=== PATIENT | male | born 1950 | race American Indian/Alaskan Native ===

== ENCOUNTER 2021-06-01 01:45 | Inpatient (IN) | payer MEDICARE ==
[2021-06-02] MEDS ORDERED: MELATONIN 5 MG TAB PO PRN (01:27)
[2021-06-02 07:49] LABS: Basophils # (Auto) 0.1 K/mm3 (0.0-0.1); Basophils % (Auto) 1.2 % (0.0-1.8); Eosinophils # (Auto) 0.3 K/mm3 (0.0-0.4); Eosinophils % (Auto) 3.9 % (0.0-4.3); Hematocrit 40.7 % (35.5-45.6); Hemoglobin 13.1 gm/dl (11.8-15.2); Lymphocytes # (Auto) 2.9 K/mm3 (1.2-5.4); Mean Corpuscular HGB Conc 32 % (32-34); Mean Corpuscular Volume 86 fl (84-94); Monocytes # (Auto) 0.7 K/mm3 (0.0-0.8); Monocytes % (Auto) 9.8 % (0.0-7.3); Platelet Count 326 K/mm3 (140-440); Red Blood Count 4.72 M/mm3 (3.65-5.03); Red Cell Distribution Width 16.5 % (13.2-15.2)
[2021-06-02 08:07] LABS: Alanine Aminotransferase 27 units/L (7-56); Albumin 3.9 g/dL (3.9-5); Blood Urea Nitrogen 15 mg/dL (9-20); Calcium 9.7 mg/dL (8.4-10.2); Chol/HDL Ratio 3.71 %; HDL Cholesterol 35 mg/dL (40-59); Hemolysis Index 3; LDL Cholesterol,Direct 85 mg/dL (50-130)
[2021-06-02 08:09] LABS: BUN/Creatinine Ratio 21
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
[2021-06-02] MEDS ORDERED: metFORMIN 500 MG TAB PO SCH (10:00)
[2021-06-02] MEDS ORDERED: NON-FORMULARY EACH (Ferrous Sulfate [Ferrous Sulfate 324 Mg] 324 MG Tablet.Dr) PO SCH (10:00)
[2021-06-02] MEDS ORDERED: INSULIN LISPRO PROTAMIN SQ SCH ×2 (10:00→18:00)
[2021-06-02] MEDS ORDERED: LISPRO SQ SCH ×2 (10:00→18:00)
[2021-06-02] MEDS ORDERED: [UNRECOGNIZED DRUG - OTHER] SQ SCH ×2 (10:00→18:00)
[2021-06-02] MEDS ORDERED: NON-FORMULARY EACH (Rosuvastatin Calcium [Crestor] 20 MG Tablet) PO SCH (10:00)
[2021-06-02] MEDS ORDERED: amLODIPine 10 MG TAB PO SCH (10:00)
[2021-06-02] MEDS ORDERED: NON-FORMULARY EACH (Omeprazole [Omeprazole] 20 MG Capsule.Dr) PO SCH (10:00)
[2021-06-02] MEDS ORDERED: PIOGLITAZONE 15 MG TAB PO SCH (10:00)
[2021-06-02] MEDS: VALPROIC ACID 250 MG/5 ML ORAL LIQD PO SCH (10:12)
[2021-06-02] MEDS: CITALOPRAM 10 MG TAB PO SCH (10:13)
[2021-06-02] MEDS: INSULIN NPH/REGULAR 70/30 INJ SUB-Q SCH (10:14)
[2021-06-02] MEDS: PANTOPRAZOLE 20 MG TAB PO SCH (10:14)
[2021-06-02] MEDS: ASPIRIN 81 MG TAB CHEW PO SCH (10:14)
[2021-06-02] MEDS: LISINOPRIL 5 MG TAB PO SCH (10:17)
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
[2021-06-02] MEDS ORDERED: DEXTROSE 50% IN WATER (25GM) 50 ML SYRINGE IV PRN (11:43)
[2021-06-02] MEDS ORDERED: DEXTROSE 10% *Hypoglycemia IV PRN (11:45)
[2021-06-02] MEDS: INSULIN LISPRO 100 UNIT/ML SUB-Q SCH ×3 (12:09→21:35)
[2021-06-02] MEDS ORDERED: FERROUS SULFATE 325 MG TAB PO SCH (14:00)
[2021-06-02] MEDS ORDERED: INSULIN NPH/REGULAR 70/30 INJ SUB-Q SCH (18:00)
[2021-06-02] MEDS: traZODone 50 MG TAB PO SCH (21:38)
--- NOTE | 2021-06-03 08:55 | Progress Note ---
Assessment and Plan Assessment and plan: #Dementia with behavioral disturbance # Nicotine Abuse. - Cigarettes 2-ppd - behavioral health counseling administered which included education on benefits of smoking cessation as well as options for quitting. +15 min. #Type 2 diabetes with hyperglycemia #GERD #HLD #Essential Hypertension #Advance care planning Disease education conducted, care plan discussed, diagnoses discussed, prognosis discussed, patient is full code, patient acknowledges understanding and agree with care plan, +30 minutes. Plan -Psychiatric medication management per inpatient psych service -Monitor blood pressure daily, vitals signs reviewed for today's encounter. -Accu-Cheks ACHS -Agree with lab work ordered, reviewed all lab values. Counseled on nicotine cessation -A1c: 6.6, ordered SSI for further glycemic control in addition to nph 75/25 regimen at this time. Will consider basal bolus regimen with lantus if glycemic control worsens. Recommend holding metformin and pioglitazone at this time while inpatient, can resume on discharge. - added insulin r 5 units achs, increased nph 75/25 pm dose to 15 units. -lisinopril dose increased from 5 mg po daily to 20 mg po daily. - protonix for GERD noted - Amlodipine and lisinopril for blood pressure control , however Amlodipine 10 mg bid is not appropriate dosing for this medication. will drop to 10 mg daily. Can increase lisinopril dosing if further BP optimization needed. - Atorvastatin for HLD noted. - Ferrous sulfate 325 mg po tid disconitnued, patient is not anemic, normal hemoglobin/hematocrit and MCV. Check QTC in light of initiation of multiple psych medications History Interval history: no overnight events. Blood sugars remain elevated. Hospitalist Physical - Physical exam Narrative exam: Physical Exam: VITAL SIGNS: Reviewed. GENERAL: The patient appears normally developed, Vital signs as documented. HEAD: No signs of head trauma. EYES: Pupils are equal. Extraocular motions intact. EARS: Hearing grossly intact. MOUTH: Oropharynx is normal. NECK: No adenopathy, no JVD. CHEST: Chest with clear breath sounds bilaterally. No wheezes, rales, or rhonchi. CARDIAC: Regular rate and rhythm. S1 and S2, without murmurs, gallops, or rubs. VASCULAR: No Edema. Peripheral pulses normal and equal in all extremities. ABDOMEN: Soft, non tender and non distended. No rebound or guarding, and no masses palpated. Bowel Sounds normal. MUSCULOSKELETAL: Good range of motion of all major joints. Extremities without clubbing, cyanosis or edema. NEUROLOGIC EXAM: Alert and oriented x 4. no focal sensory or strength deficits. PSYCHIATRIC: Mood normal. SKIN: detail exam as documented in skin assessment - Constitutional Vitals: Temp Pulse Resp BP Pulse Ox 98.2 F 70 17 138/69 98 06/02/21 19:32 06/02/21 19:32 06/02/21 19:32 06/02/21 19:32 06/02/21 19:32 Results - Labs CBC & Chem 7: 06/02/21 07:34 06/02/21 07:34 Labs: Laboratory Last Values WBC 7.4 K/mm3 (4.5-11.0) 06/02/21 07:34 RBC 4.72 M/mm3 (3.65-5.03) 06/02/21 07:34 Hgb 13.1 gm/dl (11.8-15.2) 06/02/21 07:34 Hct 40.7 % (35.5-45.6) 06/02/21 07:34 MCV 86 fl (84-94) 06/02/21 07:34 MCH 28 pg (28-32) 06/02/21 07:34 MCHC 32 % (32-34) 06/02/21 07:34 RDW 16.5 % (13.2-15.2) H 06/02/21 07:34 Plt Count 326 K/mm3 (140-440) 06/02/21 07:34 Lymph % (Auto) 40.0 % (13.4-35.0) H 06/02/21 07:34 [place] % (Auto) 9.8 % (0.0-7.3) H 06/02/21 07:34 Eos % (Auto) 3.9 % (0.0-4.3) 06/02/21 07:34 Baso % (Auto) 1.2 % (0.0-1.8) 06/02/21 07:34 Lymph # (Auto) 2.9 K/mm3 (1.2-5.4) 06/02/21 07:34 [place] # (Auto) 0.7 K/mm3 (0.0-0.8) 06/02/21 07:34 Eos # (Auto) 0.3 K/mm3 (0.0-0.4) 06/02/21 07:34 Baso # (Auto) 0.1 K/mm3 (0.0-0.1) 06/02/21 07:34 Seg Neutrophils % 45.1 % (40.0-70.0) 06/02/21 07:34 Seg Neutrophils # 3.3 K/mm3 (1.8-7.7) 06/02/21 07:34 Sodium 136 mmol/L (137-145) L 06/02/21 07:34 Potassium 4.1 mmol/L (3.6-5.0) 06/02/21 07:34 Chloride 100.3 mmol/L (98-107) 06/02/21 07:34 Carbon Dioxide 25 mmol/L (22-30) 06/02/21 07:34 Anion Gap 15 mmol/L 06/02/21 07:34 BUN 15 mg/dL (9-20) 06/02/21 07:34 Creatinine 0.7 mg/dL (0.8-1.3) L 06/02/21 07:34 Estimated GFR > 60 ml/min 06/02/21 07:34 BUN/Creatinine Ratio 21 % 06/02/21 07:34 Glucose 205 mg/dL (75-100) H 06/02/21 07:34 POC Glucose 211 mg/dL (70-105) H 06/03/21 07:04 Hemoglobin A1c 6.6 % (4-6) H 06/02/21 07:34 Calcium 9.7 mg/dL (8.4-10.2) 06/02/21 07:34 Total Bilirubin 0.40 mg/dL (0.1-1.2) 06/02/21 07:34 AST 25 units/L (5-40) 06/02/21 07:34 ALT 27 units/L (7-56) 06/02/21 07:34 Alkaline Phosphatase 70 units/L (35-129) 06/02/21 07:34 Total Protein 7.2 g/dL (6.3-8.2) 06/02/21 07:34 Albumin 3.9 g/dL (3.9-5) 06/02/21 07:34 Albumin/Globulin Ratio 1.2 % 06/02/21 07:34 Triglycerides 60 mg/dL (2-149) 06/02/21 07:34 Cholesterol 130 mg/dL (50-199) 06/02/21 07:34 LDL Cholesterol Direct 85 mg/dL (50-130) 06/02/21 07:34 HDL Cholesterol 35 mg/dL (40-59) L 06/02/21 07:34 Cholesterol/HDL Ratio 3.71 % 06/02/21 07:34 TSH 1.620 mlU/mL (0.270-4.200) 06/02/21 07:34 Mares/IV: Voiding Method Toilet Active Medications - Current Medications Current Medications: Generic Name Dose Route Start Last Admin Trade Name Freq PRN Reason Stop Dose Admin Amlodipine Besylate 10 mg 06/03/21 10:00 Amlodipine 10 Mg Tab PO DAILY [facility] Aspirin 81 mg 06/02/21 10:00 06/02/21 10:14 Aspirin 81 Mg Tab Chew PO 81 mg QDAY [facility] Administration Atorvastatin Calcium 40 mg 06/02/21 22:00 06/02/21 21:38 Atorvastatin 40 Mg Tab PO 40 mg QHS [facility] Administration Citalopram Hydrobromide 10 mg 06/02/21 10:00 06/02/21 10:13 Citalopram 10 Mg Tab PO 10 mg QDAY [facility] Administration Dextrose 0 ml 06/02/21 11:45 Dextrose 10% *Hypoglycemia IV PRN PRN Hypoglycemia Insulin Human Isoph/Insulin Regular 30 unit 06/02/21 10:00 06/02/21 10:14 Insulin Nph/Regular 70/30 Inj SUB-Q 30 unit QAM [facility] Administration Insulin Human Lispro 0 unit 06/02/21 11:30 06/02/21 21:35 Insulin Lispro 100 Unit/Ml SUB-Q 6 unit ACHS [facility] Administration Protocol Lisinopril 5 mg 06/02/21 10:00 06/02/21 10:17 Lisinopril 5 Mg Tab PO Not Given DAILY [facility] Melatonin 5 mg 06/02/21 01:27 Melatonin 5 Mg Tab PO QHS PRN Sleep Pantoprazole Sodium 20 mg 06/02/21 10:00 06/02/21 10:14 Pantoprazole 20 Mg Tab PO 20 mg QDAY [facility] Administration Trazodone HCl 50 mg 06/02/21 22:00 06/02/21 21:38 Trazodone 50 Mg Tab PO 50 mg QHS [facility] Administration Valproic Acid 125 mg 06/02/21 10:00 06/02/21 10:12 Valproic Acid 250 Mg/5 Ml Oral Liqd PO 125 mg DAILY [facility] Administration
[2021-06-03] MEDS: LISINOPRIL 5 MG TAB PO SCH (09:05)
[2021-06-03] MEDS: VALPROIC ACID 250 MG/5 ML ORAL LIQD PO SCH (09:26)
[2021-06-03] MEDS: CITALOPRAM 10 MG TAB PO SCH (09:26)
[2021-06-03] MEDS: PANTOPRAZOLE 20 MG TAB PO SCH (09:27)
[2021-06-03] MEDS: ASPIRIN 81 MG TAB CHEW PO SCH (09:27)
[2021-06-03] MEDS: INSULIN LISPRO 100 UNIT/ML SUB-Q SCH ×4 (09:27→21:09)
--- NOTE | 2021-06-03 10:08 | Progress Note ---
Subjective Date of service: 06/03/21 Principal diagnosis: Dementia with Behavioral Disturbance Subjective Comment: The patient was seen today. He is lying in bed but easily arouses. He is confused. He says he slept okay. The patient says he's doing alright. He denies SI/HI. 06/02 The patient was seen today. He is confused, and had poor insight. He could not give any history or tell what is presently going on with him. He says he was admitted into the hospital because he was sick and had arm pain. He denies any psych history or being on any psych meds. The patient says "I takes a pill for my sugar." He denies ever being agitated at his custodial. The patient denies SI/HI or hallucinations. REVIEW OF SYSTEMS Unable to assess MENTAL STATUS EXAMINATION Unable to assess Assessment and Plan Dementia with Behavioral Disturbance Treatment Plan Patient admitted for inpatient psychiatric evaluation, medication adjustment and close monitoring The patient's behavior, mood, sleep and appetite will be closely monitored. Patient enrolled in individual and group therapeutic sessions and encouraged to attend. Patient provided with a safe and structured environment. Patient's physical health needs will be addressed by the Hospitalist. Hospitalist Consulted Labs including CBC, CMP, Lipid profile and Hemoglobin A1C levels ordered for baseline reference Social Assessment will be completed and the Support Dba will work with patient and family to ensure a suitable and safe disposition Medication adjustment will be made as clinically indicated Valproic 125mg po daily Trazodone 50mg po qhs Usual Wellness Mandaen/Preservation: - Start Trazodone 50 mg po QHS & 50 mg po QHS PRN between 10 PM & 2 AM for insomnia - Start Melatonin 5 mg po QHS to promote circadian rhythm The patient agreed on the treatment plan, understood the risk, benefit, alternative treatment, potential consequence of no treatment, and gave informed consent. Estimated days: Post hospital care: primary care provider, psychiatric provider Case staffed with Dr. Mosley Medications and Allergies Allergies Allergy/AdvReac Type Severity Reaction Status Date / Time No Known Drug Allergies Allergy Unknown Verified 06/02/21 01:14 Home Medications Medication Instructions Recorded Confirmed Last Taken Type Aspirin [Aspirin BABY CHEW TAB] 81 mg PO QDAY 06/02/21 06/02/21 Unknown History Citalopram [celeXA] 10 mg PO QDAY MDD x7 Days 06/02/21 06/02/21 05/30/21 History Ferrous Sulfate [Ferrous Sulfate 324 mg PO DAILY 06/02/21 06/02/21 Unknown History 324 MG] Insulin Lispro Protamin/Lispro 5 units SQ QPM 06/02/21 06/02/21 Unknown History [HumaLOG Mix 75-25 Kwikpen] Insulin Lispro Protamin/Lispro 30 units SQ QAM 06/02/21 06/02/21 Unknown History [HumaLOG Mix 75-25 Kwikpen] Lisinopril [Zestril] 5 mg PO DAILY 06/02/21 06/02/21 Unknown History Metformin HCl [metFORMIN] 1,000 mg PO BID 06/02/21 06/02/21 Unknown History Omeprazole 20 mg PO DAILY 06/02/21 06/02/21 Unknown History Pioglitazone [Actos] 15 mg PO QDAY 06/02/21 06/02/21 Unknown History Rosuvastatin Calcium [Crestor] 20 mg PO DAILY 06/02/21 06/02/21 Unknown History amLODIPine 10 mg PO BID 06/02/21 06/02/21 Unknown History Active Meds: Active Medications Amlodipine Besylate (Amlodipine 10 Mg Tab) 10 mg PO DAILY [facility] Aspirin (Aspirin 81 Mg Tab Chew) 81 mg PO QDAY [facility] Last Admin: 06/03/21 09:27 Dose: 81 mg Atorvastatin Calcium (Atorvastatin 40 Mg Tab) 40 mg PO QHS [facility] Last Admin: 06/02/21 21:38 Dose: 40 mg Citalopram Hydrobromide (Citalopram 10 Mg Tab) 10 mg PO QDAY [facility] Last Admin: 06/03/21 09:26 Dose: 10 mg Dextrose (Dextrose 10% *Hypoglycemia) 0 ml IV PRN PRN PRN Reason: Hypoglycemia Insulin Human Isoph/Insulin Regular (Insulin Nph/Regular 70/30 Inj) [facility] Last Admin: 06/02/21 10:14 Dose: 30 unit Insulin Human Isoph/Insulin Regular (Insulin Nph/Regular 70/30 Inj) 15 unit SUB-Q QPM [facility] Insulin Human Lispro (Insulin Lispro 100 Unit/Ml) 0 unit SUB-Q ACHS [facility]; Protocol Last Admin: 06/02/21 21:35 Dose: 6 unit Insulin Human Regular (Insulin Regular, Human 100 Units/1 Ml) 5 units SUB-Q ACHS [facility] Lisinopril (Lisinopril 20 Mg Tab) 20 mg PO DAILY [facility] Melatonin (Melatonin 5 Mg Tab) 5 mg PO QHS PRN PRN Reason: Sleep Pantoprazole Sodium (Pantoprazole 20 Mg Tab) 20 mg PO QDAY [facility] Last Admin: 06/03/21 09:27 Dose: 20 mg Trazodone HCl (Trazodone 50 Mg Tab) 50 mg PO QHS [facility] Last Admin: 06/02/21 21:38 Dose: 50 mg Valproic Acid (Valproic Acid 250 Mg/5 Ml Oral Liqd) 125 mg PO DAILY [facility] Last Admin: 06/03/21 09:26 Dose: 125 mg Results - Results Labs/Vitals: Laboratory Last Values WBC 7.4 K/mm3 (4.5-11.0) 06/02/21 07:34 RBC 4.72 M/mm3 (3.65-5.03) 06/02/21 07:34 Hgb 13.1 gm/dl (11.8-15.2) 06/02/21 07:34 Hct 40.7 % (35.5-45.6) 06/02/21 07:34 MCV 86 fl (84-94) 06/02/21 07:34 MCH 28 pg (28-32) 06/02/21 07:34 MCHC 32 % (32-34) 06/02/21 07:34 RDW 16.5 % (13.2-15.2) H 06/02/21 07:34 Plt Count 326 K/mm3 (140-440) 06/02/21 07:34 Lymph % (Auto) 40.0 % (13.4-35.0) H 06/02/21 07:34 [place]pp % (Auto) 9.8 % (0.0-7.3) H 06/02/21 07:34 Eos % (Auto) 3.9 % (0.0-4.3) 06/02/21 07:34 Baso % (Auto) 1.2 % (0.0-1.8) 06/02/21 07:34 Lymph # (Auto) 2.9 K/mm3 (1.2-5.4) 06/02/21 07:34 [place]pp # (Auto) 0.7 K/mm3 (0.0-0.8) 06/02/21 07:34 Eos # (Auto) 0.3 K/mm3 (0.0-0.4) 06/02/21 07:34 Baso # (Auto) 0.1 K/mm3 (0.0-0.1) 06/02/21 07:34 Seg Neutrophils % 45.1 % (40.0-70.0) 06/02/21 07:34 Seg Neutrophils # 3.3 K/mm3 (1.8-7.7) 06/02/21 07:34 Sodium 136 mmol/L (137-145) L 06/02/21 07:34 Potassium 4.1 mmol/L (3.6-5.0) 06/02/21 07:34 Chloride 100.3 mmol/L (98-107) 06/02/21 07:34 Carbon Dioxide 25 mmol/L (22-30) 06/02/21 07:34 Anion Gap 15 mmol/L 06/02/21 07:34 BUN 15 mg/dL (9-20) 06/02/21 07:34 Creatinine 0.7 mg/dL (0.8-1.3) L 06/02/21 07:34 Estimated GFR > 60 ml/min 06/02/21 07:34 BUN/Creatinine Ratio 21 % 06/02/21 07:34 Glucose 205 mg/dL (75-100) H 06/02/21 07:34 POC Glucose 211 mg/dL (70-105) H 06/03/21 07:04 Hemoglobin A1c 6.6 % (4-6) H 06/02/21 07:34 Calcium 9.7 mg/dL (8.4-10.2) 06/02/21 07:34 Total Bilirubin 0.40 mg/dL (0.1-1.2) 06/02/21 07:34 AST 25 units/L (5-40) 06/02/21 07:34 ALT 27 units/L (7-56) 06/02/21 07:34 Alkaline Phosphatase 70 units/L (35-129) 06/02/21 07:34 Total Protein 7.2 g/dL (6.3-8.2) 06/02/21 07:34 Albumin 3.9 g/dL (3.9-5) 06/02/21 07:34 Albumin/Globulin Ratio 1.2 % 06/02/21 07:34 Triglycerides 60 mg/dL (2-149) 06/02/21 07:34 Cholesterol 130 mg/dL (50-199) 06/02/21 07:34 LDL Cholesterol Direct 85 mg/dL (50-130) 06/02/21 07:34 HDL Cholesterol 35 mg/dL (40-59) L 06/02/21 07:34 Cholesterol/HDL Ratio 3.71 % 06/02/21 07:34 TSH 1.620 mlU/mL (0.270-4.200) 06/02/21 07:34 Last Vital Signs Temp 98.2 F 06/02/21 19:32 Pulse 57 L 06/03/21 09:05 Resp 17 06/02/21 19:32 BP 134/62 06/03/21 09:05 Pulse Ox 98 06/02/21 19:32
[2021-06-03] MEDS: INSULIN NPH/REGULAR 70/30 INJ SUB-Q SCH ×2 (10:50→18:19)
[2021-06-03] MEDS: amLODIPine 10 MG TAB PO SCH (10:52)
[2021-06-03] MEDS: LISINOPRIL 20 MG TAB PO SCH (10:52)
[2021-06-03] MEDS: INSULIN REGULAR, HUMAN 100 UNITS/1 ML SUB-Q SCH ×3 (11:52→21:08)
[2021-06-03 15:31] LABS: Bilirubin,Urine NEG (Negative); Blood,Urine NEG (Negative); Color,Urine Yellow (Yellow); Mucus,Urine FEW /HPF; Protein,Urine <15 mg/dL mg/dL (Negative); Urobilinogen,Urine < 2.0 mg/dL (<2.0); WBC,Urine < 1.0 /HPF (0.0-6.0)
[2021-06-03] MEDS: traZODone 50 MG TAB PO SCH (21:07)
[2021-06-04] MEDS: INSULIN LISPRO 100 UNIT/ML SUB-Q SCH ×4 (07:15→22:20)
[2021-06-04] MEDS: INSULIN REGULAR, HUMAN 100 UNITS/1 ML SUB-Q SCH ×4 (07:16→22:21)
--- NOTE | 2021-06-04 08:32 | Event Note ---
Date: 06/04/21 AM Accuchecks shows improved glycemic control with diabetic regimen adjustment. VS review demonstrated improved blood pressure control. Patient no additional complaints. IM service will sign off. Thank you for including us in the care of this patient. Please re-consult if further assistance is needed.
[2021-06-04] MEDS: PANTOPRAZOLE 20 MG TAB PO SCH (09:17)
[2021-06-04] MEDS: VALPROIC ACID 250 MG/5 ML ORAL LIQD PO SCH (09:17)
[2021-06-04] MEDS: ASPIRIN 81 MG TAB CHEW PO SCH (09:17)
[2021-06-04] MEDS: CITALOPRAM 10 MG TAB PO SCH (09:18)
[2021-06-04] MEDS: LISINOPRIL 20 MG TAB PO SCH (09:18)
[2021-06-04] MEDS: amLODIPine 10 MG TAB PO SCH (09:18)
[2021-06-04] MEDS: INSULIN NPH/REGULAR 70/30 INJ SUB-Q SCH ×2 (10:33→18:56)
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
[2021-06-04] MEDS: traZODone 50 MG TAB PO SCH (21:28)
[2021-06-05] MEDS: INSULIN LISPRO 100 UNIT/ML SUB-Q SCH ×4 (08:00→22:49)
[2021-06-05] MEDS: INSULIN REGULAR, HUMAN 100 UNITS/1 ML SUB-Q SCH ×5 (08:01→22:51)
[2021-06-05] MEDS: PANTOPRAZOLE 20 MG TAB PO SCH (09:25)
[2021-06-05] MEDS: VALPROIC ACID 250 MG/5 ML ORAL LIQD PO SCH (09:25)
[2021-06-05] MEDS: ASPIRIN 81 MG TAB CHEW PO SCH (09:26)
[2021-06-05] MEDS: amLODIPine 10 MG TAB PO SCH (09:26)
[2021-06-05] MEDS: LISINOPRIL 20 MG TAB PO SCH (09:26)
[2021-06-05] MEDS: CITALOPRAM 10 MG TAB PO SCH (09:26)
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
[2021-06-05] MEDS: INSULIN NPH/REGULAR 70/30 INJ SUB-Q SCH ×2 (10:40→18:36)
--- NOTE | 2021-06-05 11:08 | Progress Note ---
Assessment and Plan - Patient Problems (1) Vascular dementia with behavior disturbance Current Visit: Yes Status: Acute Plan to address problem: Verbal prompting, verbal redirection, benzodiazepine therapy as clinically indicated. (2) Cerebral atherosclerosis Current Visit: Yes Status: Acute Plan to address problem: Risk factor reduction therapy, antiplatelet therapy as clinically indicated. (3) HTN (hypertension) Current Visit: Yes Status: Acute Qualifiers: Hypertension type: primary hypertension Qualified Code(s): I10 - Essential (primary) hypertension Plan to address problem: Monitor blood pressure every shift, continue medical management (4) HLD (hyperlipidemia) Current Visit: Yes Status: Acute Qualifiers: Hyperlipidemia type: mixed hyperlipidemia Qualified Code(s): E78.2 - Mixed hyperlipidemia Plan to address problem: Low-cholesterol diet, supportive care, statin therapy as clinically indicated. (5) Diabetes Current Visit: Yes Status: Acute Plan to address problem: Consistent carbohydrate diet, Accu-Chek, insulin protocol, hypoglycemia protocol. (6) Nicotine dependence Current Visit: Yes Status: Acute Qualifiers: Nicotine product type: cigarettes Plan to address problem: Smoking cessation counseling, supportive care, continue medical management (7) JOHN (generalized anxiety disorder) Current Visit: Yes Status: Acute Plan to address problem: Benzodiazepine therapy as clinically indicated. (8) MDD (major depressive disorder) Current Visit: Yes Status: Acute Qualifiers: Major depression episode severity: unspecified Plan to address problem: Continue medical management, behavior change counseling, cognitive behavioral therapy. (9) Advance care planning Current Visit: Yes Status: Acute Plan to address problem: Disease education conducted, care plan discussed, diagnoses discussed, prognosis discussed, patient is full code. Patient acknowledges understanding and agree with care plan, +30 minutes. History Interval history: 70 YO Male with Vascular Dementia with Behavioral Disturbance, Cerebral Atherosclerosis, Nicotine Dependence, GERD, DM, HLD, HTN, JOHN, MDD admitted to [facility] for psychiatric stabilization. Consult placed by Dr. Bowden for medical management. Pt seen and evaluated in the recreation room. Patient justina ears to be at baseline level of cognition and function. Hospitalist Physical - Constitutional Vitals: Temp Pulse Resp BP Pulse Ox 98.4 F 75 16 121/64 95 06/05/21 08:20 06/05/21 09:26 06/05/21 08:20 06/05/21 09:26 06/05/21 08:20 General appearance: Present: no acute distress - EENT Eyes: Present: PERRL ENT: hearing decreased - Neck Neck: Present: supple - Respiratory Respiratory effort: normal Respiratory: bilateral: CTA - Cardiovascular Rhythm: regular Heart Sounds: Present: S1 & S2 - Extremities Extremities: no ischemia Peripheral Pulses: within normal limits - Abdominal General gastrointestinal: soft, non-tender, non-distended - Integumentary Integumentary: Present: clear, dry - Psychiatric Psychiatric: cooperative - Neurologic Neurologic: CNII-XII intact Results - Labs CBC & Chem 7: 06/02/21 07:34 06/02/21 07:34 Labs: Laboratory Last Values WBC 7.4 K/mm3 (4.5-11.0) 06/02/21 07:34 RBC 4.72 M/mm3 (3.65-5.03) 06/02/21 07:34 Hgb 13.1 gm/dl (11.8-15.2) 06/02/21 07:34 Hct 40.7 % (35.5-45.6) 06/02/21 07:34 MCV 86 fl (84-94) 06/02/21 07:34 MCH 28 pg (28-32) 06/02/21 07:34 MCHC 32 % (32-34) 06/02/21 07:34 RDW 16.5 % (13.2-15.2) H 06/02/21 07:34 Plt Count 326 K/mm3 (140-440) 06/02/21 07:34 Lymph % (Auto) 40.0 % (13.4-35.0) H 06/02/21 07:34 [place] % (Auto) 9.8 % (0.0-7.3) H 06/02/21 07:34 Eos % (Auto) 3.9 % (0.0-4.3) 06/02/21 07:34 Baso % (Auto) 1.2 % (0.0-1.8) 06/02/21 07:34 Lymph # (Auto) 2.9 K/mm3 (1.2-5.4) 06/02/21 07:34 [place] # (Auto) 0.7 K/mm3 (0.0-0.8) 06/02/21 07:34 Eos # (Auto) 0.3 K/mm3 (0.0-0.4) 06/02/21 07:34 Baso # (Auto) 0.1 K/mm3 (0.0-0.1) 06/02/21 07:34 Seg Neutrophils % 45.1 % (40.0-70.0) 06/02/21 07:34 Seg Neutrophils # 3.3 K/mm3 (1.8-7.7) 06/02/21 07:34 Sodium 136 mmol/L (137-145) L 06/02/21 07:34 Potassium 4.1 mmol/L (3.6-5.0) 06/02/21 07:34 Chloride 100.3 mmol/L (98-107) 06/02/21 07:34 Carbon Dioxide 25 mmol/L (22-30) 06/02/21 07:34 Anion Gap 15 mmol/L 06/02/21 07:34 BUN 15 mg/dL (9-20) 06/02/21 07:34 Creatinine 0.7 mg/dL (0.8-1.3) L 06/02/21 07:34 Estimated GFR > 60 ml/min 06/02/21 07:34 BUN/Creatinine Ratio 21 % 06/02/21 07:34 Glucose 205 mg/dL (75-100) H 06/02/21 07:34 POC Glucose 278 mg/dL (70-105) H 06/05/21 10:04 Hemoglobin A1c 6.6 % (4-6) H 06/02/21 07:34 Calcium 9.7 mg/dL (8.4-10.2) 06/02/21 07:34 Total Bilirubin 0.40 mg/dL (0.1-1.2) 06/02/21 07:34 AST 25 units/L (5-40) 06/02/21 07:34 ALT 27 units/L (7-56) 06/02/21 07:34 Alkaline Phosphatase 70 units/L (35-129) 06/02/21 07:34 Total Protein 7.2 g/dL (6.3-8.2) 06/02/21 07:34 Albumin 3.9 g/dL (3.9-5) 06/02/21 07:34 Albumin/Globulin Ratio 1.2 % 06/02/21 07:34 Triglycerides 60 mg/dL (2-149) 06/02/21 07:34 Cholesterol 130 mg/dL (50-199) 06/02/21 07:34 LDL Cholesterol Direct 85 mg/dL (50-130) 06/02/21 07:34 HDL Cholesterol 35 mg/dL (40-59) L 06/02/21 07:34 Cholesterol/HDL Ratio 3.71 % 06/02/21 07:34 TSH 1.620 mlU/mL (0.270-4.200) 06/02/21 07:34 Urine Color Yellow (Yellow) 06/03/21 14:11 Urine Turbidity Clear (Clear) 06/03/21 14:11 Urine pH 5.0 (5.0-7.0) 06/03/21 14:11 Ur Specific [place] 1.015 (1.003-1.030) 06/03/21 14:11 Urine Protein <15 mg/dl mg/dL (Negative) 06/03/21 14:11 Urine Glucose (UA) >=500 mg/dL (Negative) 06/03/21 14:11 Urine Ketones Neg mg/dL (Negative) 06/03/21 14:11 Urine Blood Neg (Negative) 06/03/21 14:11 Urine Nitrite Neg (Negative) 06/03/21 14:11 Urine Bilirubin Neg (Negative) 06/03/21 14:11 Urine Urobilinogen < 2.0 mg/dL (<2.0) 06/03/21 14:11 Ur Leukocyte Esterase Neg (Negative) 06/03/21 14:11 Urine WBC (Auto) < 1.0 /HPF (0.0-6.0) 06/03/21 14:11 Urine RBC (Auto) 1.0 /HPF (0.0-6.0) 06/03/21 14:11 U Epithel Cells (Auto) 1.0 /HPF (0-13.0) 06/03/21 14:11 Urine Mucus Few /HPF 06/03/21 14:11 Mares/IV: Voiding Method Toilet Active Medications - Current Medications Current Medications: Generic Name Dose Route Start Last Admin Trade Name Freq PRN Reason Stop Dose Admin Amlodipine Besylate 10 mg 06/03/21 10:00 06/05/21 09:26 Amlodipine 10 Mg Tab PO 10 mg DAILY [facility] Administration Aspirin 81 mg 06/02/21 10:00 06/05/21 09:26 Aspirin 81 Mg Tab Chew PO 81 mg QDAY [facility] Administration Atorvastatin Calcium 40 mg 06/02/21 22:00 06/04/21 21:28 Atorvastatin 40 Mg Tab PO 40 mg QHS [facility] Administration Citalopram Hydrobromide 10 mg 06/02/21 10:00 06/05/21 09:26 Citalopram 10 Mg Tab PO 10 mg QDAY [facility] Administration Dextrose 0 ml 06/02/21 11:45 Dextrose 10% *Hypoglycemia IV PRN PRN Hypoglycemia Insulin Human Isoph/Insulin Regular 30 unit 06/02/21 10:00 06/04/21 10:33 Insulin Nph/Regular 70/30 Inj SUB-Q 30 unit QAM [facility] Administration Insulin Human Isoph/Insulin Regular 5 unit 06/05/21 18:00 Insulin Nph/Regular 70/30 Inj SUB-Q QPM ON LICENSE OF [facility] Insulin Human Lispro 0 unit 06/02/21 11:30 06/05/21 08:00 Insulin Lispro 100 Unit/Ml SUB-Q 3 unit ACHS [facility] OF [facility] Administration Protocol Insulin Human Regular 5 units 06/03/21 11:30 06/05/21 08:01 Insulin Regular, Human 100 Units/1 Ml SUB-Q Not Given ACHS ON LICENSE OF [facility] Lisinopril 20 mg 06/03/21 08:55 06/05/21 09:26 Lisinopril 20 Mg Tab PO 20 mg DAILY [facility] Administration Melatonin 5 mg 06/02/21 01:27 Melatonin 5 Mg Tab PO QHS PRN Sleep Pantoprazole Sodium 20 mg 06/02/21 10:00 06/05/21 09:25 Pantoprazole 20 Mg Tab PO 20 mg QDAY [facility] Administration Trazodone HCl 50 mg 06/02/21 22:00 06/04/21 21:28 Trazodone 50 Mg Tab PO 50 mg QHS [facility] Administration Valproic Acid 125 mg 06/02/21 10:00 06/05/21 09:25 Valproic Acid 250 Mg/5 Ml Oral Liqd PO 125 mg DAILY [facility] Administration
[2021-06-05] MEDS: traZODone 50 MG TAB PO SCH (21:03)
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
[2021-06-06] MEDS: INSULIN LISPRO 100 UNIT/ML SUB-Q SCH ×4 (09:30→22:22)
[2021-06-06] MEDS: INSULIN REGULAR, HUMAN 100 UNITS/1 ML SUB-Q SCH ×4 (09:31→22:25)
[2021-06-06] MEDS: CITALOPRAM 10 MG TAB PO SCH (10:04)
[2021-06-06] MEDS: VALPROIC ACID 250 MG/5 ML ORAL LIQD PO SCH (10:04)
[2021-06-06] MEDS: ASPIRIN 81 MG TAB CHEW PO SCH (10:05)
[2021-06-06] MEDS: PANTOPRAZOLE 20 MG TAB PO SCH (10:05)
[2021-06-06] MEDS: amLODIPine 10 MG TAB PO SCH (10:09)
[2021-06-06] MEDS: LISINOPRIL 20 MG TAB PO SCH (11:41)
[2021-06-06] MEDS: INSULIN NPH/REGULAR 70/30 INJ SUB-Q SCH ×2 (11:42→22:21)
[2021-06-06] MEDS: traZODone 50 MG TAB PO SCH (22:22)
[2021-06-07] MEDS: INSULIN LISPRO 100 UNIT/ML SUB-Q SCH ×4 (07:30→21:11)
[2021-06-07] MEDS: LISINOPRIL 20 MG TAB PO SCH (09:29)
[2021-06-07] MEDS: INSULIN NPH/REGULAR 70/30 INJ SUB-Q SCH ×2 (09:30→19:26)
[2021-06-07] MEDS: ASPIRIN 81 MG TAB CHEW PO SCH (09:30)
[2021-06-07] MEDS: amLODIPine 10 MG TAB PO SCH (09:31)
[2021-06-07] MEDS: VALPROIC ACID 250 MG/5 ML ORAL LIQD PO SCH (09:31)
[2021-06-07] MEDS: PANTOPRAZOLE 20 MG TAB PO SCH (09:31)
[2021-06-07] MEDS: CITALOPRAM 10 MG TAB PO SCH (09:31)
[2021-06-07] MEDS: INSULIN REGULAR, HUMAN 100 UNITS/1 ML SUB-Q SCH ×4 (09:46→21:10)
--- NOTE | 2021-06-07 13:03 | Progress Note ---
Subjective Date of service: 06/07/21 Principal diagnosis: Dementia with Behavioral Disturbance Subjective Comment: The patient was seen today. He is asking me when was he being discharged. He denies SI/HI ot hallucinations of any kind. The patient will discharge once outpatient resources are in place to help ensure continuity of his mental wellness. 06/06 The patient was seen today. He is calm, and cooperative. He is sitting in the dayroom. He says he feels "pretty good" and slept good. He denies SI/HI or hallucinations of any kind. 06/05 The patient was seen today. He is lying in bed. He is calm and cooperative. He asks for his clothes. I tell the patient he'll get his clothes when he leaves, and tells him he has to stay for a few days to make sure he's calm and his meds are working. He tells me that people lied on him and he never hit anyone. 06/04 The patient was seen today. He says he's doing alright. The patient is calm and cooperative. He says he slept well. He denies SI/HI. I asked him about the incident at his place of residence. He says the lady like on him. He says "I didn't hit her." 06/03 The patient was seen today. He is lying in bed but easily arouses. He is confused. He says he slept okay. The patient says he's doing alright. He denies SI/HI. 06/02 The patient was seen today. He is confused, and had poor insight. He could not give any history or tell what is presently going on with him. He says he was admitted into the hospital because he was sick and had arm pain. He denies any psych history or being on any psych meds. The patient says "I takes a pill for my sugar." He denies ever being agitated at his detention. The patient denies SI/HI or hallucinations. REVIEW OF SYSTEMS Unable to assess MENTAL STATUS EXAMINATION Unable to assess Assessment and Plan Dementia with Behavioral Disturbance Treatment Plan Patient admitted for inpatient psychiatric evaluation, medication adjustment and close monitoring The patient's behavior, mood, sleep and appetite will be closely monitored. Patient enrolled in individual and group therapeutic sessions and encouraged to attend. Patient provided with a safe and structured environment. Patient's physical health needs will be addressed by the Hospitalist. Hospital ist Consulted Labs including CBC, CMP, Lipid profile and Hemoglobin A1C levels ordered for baseline reference Social Assessment will be completed and the Submarine Operator will work with patient and family to ensure a suitable and safe disposition Medication adjustment will be made as clinically indicated Continue Valproic 125mg po daily Continue Trazodone 50mg po qhs Usual Wellness Anabaptist/Preservation: - Start Trazodone 50 mg po QHS & 50 mg po QHS PRN between 10 PM & 2 AM for insomnia - Start Melatonin 5 mg po QHS to promote circadian rhythm The patient agreed on the treatment plan, understood the risk, benefit, alternative treatment, potential consequence of no treatment, and gave informed consent. Estimated days: 5 Post hospital care: primary care provider, psychiatric provider Case staffed with Dr. Mosley Medications and Allergies Allergies Allergy/AdvReac Type Severity Reaction Status Date / Time No Known Drug Allergies Allergy Unknown Verified 06/02/21 01:14 Home Medications Medication Instructions Recorded Confirmed Last Taken Type Aspirin [Aspirin BABY CHEW TAB] 81 mg PO QDAY 06/02/21 06/02/21 Unknown History Citalopram [celeXA] 10 mg PO QDAY MDD x7 Days 06/02/21 06/02/21 05/30/21 History Ferrous Sulfate [Ferrous Sulfate 324 mg PO DAILY 06/02/21 06/02/21 Unknown History 324 MG] Insulin Lispro Protamin/Lispro 5 units SQ QPM 06/02/21 06/02/21 Unknown History [HumaLOG Mix 75-25 Kwikpen] Insulin Lispro Protamin/Lispro 30 units SQ QAM 06/02/21 06/02/21 Unknown History [HumaLOG Mix 75-25 Kwikpen] Lisinopril [Zestril] 5 mg PO DAILY 06/02/21 06/02/21 Unknown History Metformin HCl [metFORMIN] 1,000 mg PO BID 06/02/21 06/02/21 Unknown History Omeprazole 20 mg PO DAILY 06/02/21 06/02/21 Unknown History Pioglitazone [Actos] 15 mg PO QDAY 06/02/21 06/02/21 Unknown History Rosuvastatin Calcium [Crestor] 20 mg PO DAILY 06/02/21 06/02/21 Unknown History amLODIPine 10 mg PO BID 06/02/21 06/02/21 Unknown History Active Meds: Active Medications Amlodipine Besylate (Amlodipine 10 Mg Tab) 10 mg PO DAILY [facility] Last Admin: 06/07/21 09:31 Dose: Not Given Aspirin (Aspirin 81 Mg Tab Chew) 81 mg PO QDAY [facility] Last Admin: 06/07/21 09:30 Dose: 81 mg Atorvastatin Calcium (Atorvastatin 40 Mg Tab) 40 mg PO QHS [facility] Last Admin: 06/06/21 22:22 Dose: 40 mg Citalopram Hydrobromide (Citalopram 10 Mg Tab) 10 mg PO QDAY [facility] Last Admin: 06/07/21 09:31 Dose: 10 mg Dextrose (Dextrose 10% *Hypoglycemia) 0 ml IV PRN PRN PRN Reason: Hypoglycemia Insulin Human Isoph/Insulin Regular (Insulin Nph/Regular 70/30 Inj) [facility] Last Admin: 06/07/21 09:30 Dose: Not Given Insulin Human Isoph/Insulin Regular (Insulin Nph/Regular 70/30 Inj) 5 unit SUB- Q QPM [facility] Last Admin: 06/06/21 22:21 Dose: Not Given Insulin Human Lispro (Insulin Lispro 100 Unit/Ml) 0 unit SUB-Q [facility]; Protocol Last Admin: 06/07/21 12:32 Dose: 3 unit Insulin Human Regular (Insulin Regular, Human 100 Units/1 Ml) 5 units SUB-Q [facility] Last Admin: 06/07/21 12:33 Dose: Not Given Lisinopril (Lisinopril 20 Mg Tab) 20 mg PO DAILY [facility] Last Admin: 06/07/21 09:29 Dose: Not Given Melatonin (Melatonin 5 Mg Tab) 5 mg PO QHS PRN PRN Reason: Sleep Pantoprazole Sodium (Pantoprazole 20 Mg Tab) 20 mg PO QDAY [facility] Last Admin: 06/07/21 09:31 Dose: 20 mg Trazodone HCl (Trazodone 50 Mg Tab) 50 mg PO QHS [facility] Last Admin: 06/06/21 22:22 Dose: 50 mg Valproic Acid (Valproic Acid 250 Mg/5 Ml Oral Liqd) 125 mg PO DAILY [facility] Last Admin: 06/07/21 09:31 Dose: 125 mg Results - Results Labs/Vitals: Laboratory Last Values WBC 7.4 K/mm3 (4.5-11.0) 06/02/21 07:34 RBC 4.72 M/mm3 (3.65-5.03) 06/02/21 07:34 Hgb 13.1 gm/dl (11.8-15.2) 06/02/21 07:34 Hct 40.7 % (35.5-45.6) 06/02/21 07:34 MCV 86 fl (84-94) 06/02/21 07:34 MCH 28 pg (28-32) 06/02/21 07:34 MCHC 32 % (32-34) 06/02/21 07:34 RDW 16.5 % (13.2-15.2) H 06/02/21 07:34 Plt Count 326 K/mm3 (140-440) 06/02/21 07:34 Lymph % (Auto) 40.0 % (13.4-35.0) H 06/02/21 07:34 [place] % (Auto) 9.8 % (0.0-7.3) H 06/02/21 07:34 Eos % (Auto) 3.9 % (0.0-4.3) 06/02/21 07:34 Baso % (Auto) 1.2 % (0.0-1.8) 06/02/21 07:34 Lymph # (Auto) 2.9 K/mm3 (1.2-5.4) 06/02/21 07:34 [place] # (Auto) 0.7 K/mm3 (0.0-0.8) 06/02/21 07:34 Eos # (Auto) 0.3 K/mm3 (0.0-0.4) 06/02/21 07:34 Baso # (Auto) 0.1 K/mm3 (0.0-0.1) 06/02/21 07:34 Seg Neutrophils % 45.1 % (40.0-70.0) 06/02/21 07:34 Seg Neutrophils # 3.3 K/mm3 (1.8-7.7) 06/02/21 07:34 Sodium 136 mmol/L (137-145) L 06/02/21 07:34 Potassium 4.1 mmol/L (3.6-5.0) 06/02/21 07:34 Chloride 100.3 mmol/L (98-107) 06/02/21 07:34 Carbon Dioxide 25 mmol/L (22-30) 06/02/21 07:34 Anion Gap 15 mmol/L 06/02/21 07:34 BUN 15 mg/dL (9-20) 06/02/21 07:34 Creatinine 0.7 mg/dL (0.8-1.3) L 06/02/21 07:34 Estimated GFR > 60 ml/min 06/02/21 07:34 BUN/Creatinine Ratio 21 % 06/02/21 07:34 Glucose 205 mg/dL (75-100) H 06/02/21 07:34 POC Glucose 225 mg/dL (70-105) H 06/07/21 11:40 Hemoglobin A1c 6.6 % (4-6) H 06/02/21 07:34 Calcium 9.7 mg/dL (8.4-10.2) 06/02/21 07:34 Total Bilirubin 0.40 mg/dL (0.1-1.2) 06/02/21 07:34 AST 25 units/L (5-40) 06/02/21 07:34 ALT 27 units/L (7-56) 06/02/21 07:34 Alkaline Phosphatase 70 units/L (35-129) 06/02/21 07:34 Total Protein 7.2 g/dL (6.3-8.2) 06/02/21 07:34 Albumin 3.9 g/dL (3.9-5) 06/02/21 07:34 Albumin/Globulin Ratio 1.2 % 06/02/21 07:34 Triglycerides 60 mg/dL (2-149) 06/02/21 07:34 Cholesterol 130 mg/dL (50-199) 06/02/21 07:34 LDL Cholesterol Direct 85 mg/dL (50-130) 06/02/21 07:34 HDL Cholesterol 35 mg/dL (40-59) L 06/02/21 07:34 Cholesterol/HDL Ratio 3.71 % 06/02/21 07:34 TSH 1.620 mlU/mL (0.270-4.200) 06/02/21 07:34 Urine Color Yellow (Yellow) 06/03/21 14:11 Urine Turbidity Clear (Clear) 06/03/21 14:11 Urine pH 5.0 (5.0-7.0) 06/03/21 14:11 Ur Specific [place] 1.015 (1.003-1.030) 06/03/21 14:11 Urine Protein <15 mg/dl mg/dL (Negative) 06/03/21 14:11 Urine Glucose (UA) >=500 mg/dL (Negative) 06/03/21 14:11 Urine Ketones Neg mg/dL (Negative) 06/03/21 14:11 Urine Blood Neg (Negative) 06/03/21 14:11 Urine Nitrite Neg (Negative) 06/03/21 14:11 Urine Bilirubin Neg (Negative) 06/03/21 14:11 Urine Urobilinogen < 2.0 mg/dL (<2.0) 06/03/21 14:11 Ur Leukocyte Esterase Neg (Negative) 06/03/21 14:11 Urine WBC (Auto) < 1.0 /HPF (0.0-6.0) 06/03/21 14:11 Urine RBC (Auto) 1.0 /HPF (0.0-6.0) 06/03/21 14:11 U Epithel Cells (Auto) 1.0 /HPF (0-13.0) 06/03/21 14:11 Urine Mucus Few /HPF 06/03/21 14:11 Last Vital Signs Temp 98.8 F 06/07/21 08:08 Pulse 81 06/07/21 09:31 Resp 16 06/07/21 08:08 BP 100/61 06/07/21 09:31 Pulse Ox 96 06/07/21 08:08
[2021-06-07] MEDS: traZODone 50 MG TAB PO SCH (21:10)
[2021-06-08] MEDS: INSULIN LISPRO 100 UNIT/ML SUB-Q SCH ×4 (07:30→22:15)
[2021-06-08] MEDS: INSULIN REGULAR, HUMAN 100 UNITS/1 ML SUB-Q SCH ×4 (07:30→22:16)
[2021-06-08] MEDS: amLODIPine 10 MG TAB PO SCH (09:11)
[2021-06-08] MEDS: CITALOPRAM 10 MG TAB PO SCH (09:11)
[2021-06-08] MEDS: ASPIRIN 81 MG TAB CHEW PO SCH (09:11)
[2021-06-08] MEDS: VALPROIC ACID 250 MG/5 ML ORAL LIQD PO SCH (09:11)
[2021-06-08] MEDS: PANTOPRAZOLE 20 MG TAB PO SCH (09:11)
[2021-06-08] MEDS: LISINOPRIL 20 MG TAB PO SCH (09:12)
[2021-06-08] MEDS: INSULIN NPH/REGULAR 70/30 INJ SUB-Q SCH ×2 (09:13→17:07)
--- NOTE | 2021-06-08 09:54 | Progress Note ---
Subjective Date of service: 06/08/21 Principal diagnosis: Dementia with Behavioral Disturbance Subjective Comment: 06/08/21: The patient was seen this morning. He is cooperative and states he is doing well. He is asking me when was he being discharged. He denies SI/HI ot hallucinations of any kind. Awaiting placement. 06/07/21:The patient was seen today. He is asking me when was he being discharged. He denies SI/HI ot hallucinations of any kind. The patient will di scharge once outpatient resources are in place to help ensure continuity of his mental wellness. 06/06 The patient was seen today. He is calm, and cooperative. He is sitting in the dayroom. He says he feels "pretty good" and slept good. He denies SI/HI or hallucinations of any kind. 06/05 The patient was seen today. He is lying in bed. He is calm and cooperative. He asks for his clothes. I tell the patient he'll get his clothes when he leaves, and tells him he has to stay for a few days to make sure he's calm and his meds are working. He tells me that people lied on him and he never hit anyone. 06/04 The patient was seen today. He says he's doing alright. The patient is calm and cooperative. He says he slept well. He denies SI/HI. I asked him about the incident at his place of residence. He says the lady like on him. He says "I didn't hit her." 06/03 The patient was seen today. He is lying in bed but easily arouses. He is confused. He says he slept okay. The patient says he's doing alright. He denies SI/HI. 06/02 The patient was seen today. He is confused, and had poor insight. He could not give any history or tell what is presently going on with him. He says he was admitted into the hospital because he was sick and had arm pain. He denies any psych history or being on any psych meds. The patient says "I takes a pill for my sugar." He denies ever being agitated at his half-way. The patient denies SI/HI or hallucinations. REVIEW OF SYSTEMS Unable to assess MENTAL STATUS EXAMINATION Unable to assess Assessment and Plan Dementia with Behavioral Disturbance Treatment Plan Patient admitted for inpatient psychiatric evaluation, medication adjustment and close monitoring The patient's behavior, mood, sleep and appetite will be closely monitored. Patient enrolled in individual and group therapeutic sessions and encouraged to attend. Patient provided with a safe and structured environment. Patient's physical health needs will be addressed by the Hospitalist. Hospitalist Consulted Labs including CBC, CMP, Lipid profile and Hemoglobin A1C levels ordered for baseline reference Social Assessment will be completed and the [employer] Reporter will work with patient and family to ensure a suitable and safe disposition Medication adjustment will be made as clinically indicated Continue Valproic 125mg po daily Continue Trazodone 50mg po qhs Usual Wellness Rastafari/Preservation: - Start Trazodone 50 mg po QHS & 50 mg po QHS PRN between 10 PM & 2 AM for insomnia - Start Melatonin 5 mg po QHS to promote circadian rhythm The patient agreed on the treatment plan, understood the risk, benefit, alternative treatment, potential consequence of no treatment, and gave informed consent. Estimated days: 5 Post hospital care: primary care provider, psychiatric provider Case staffed with Dr. Mosley Medications and Allergies Medications and Allergies Allergies Allergy/AdvReac Type Severity Reaction Status Date / Time No Known Drug Allergies Allergy Unknown Verified 06/02/21 01:14 Home Medications Medication Instructions Recorded Confirmed Last Taken Type Aspirin [Aspirin BABY CHEW TAB] 81 mg PO QDAY 06/02/21 06/02/21 Unknown History Citalopram [celeXA] 10 mg PO QDAY MDD x7 Days 06/02/21 06/02/21 05/30/21 History Ferrous Sulfate [Ferrous Sulfate 324 mg PO DAILY 06/02/21 06/02/21 Unknown History 324 MG] Insulin Lispro Protamin/Lispro 5 units SQ QPM 06/02/21 06/02/21 Unknown History [HumaLOG Mix 75-25 Kwikpen] Insulin Lispro Protamin/Lispro 30 units SQ QAM 06/02/21 06/02/21 Unknown History [HumaLOG Mix 75-25 Kwikpen] Lisinopril [Zestril] 5 mg PO DAILY 06/02/21 06/02/21 Unknown History Metformin HCl [metFORMIN] 1,000 mg PO BID 06/02/21 06/02/21 Unknown History Omeprazole 20 mg PO DAILY 06/02/21 06/02/21 Unknown History Pioglitazone [Actos] 15 mg PO QDAY 06/02/21 06/02/21 Unknown History Rosuvastatin Calcium [Crestor] 20 mg PO DAILY 06/02/21 06/02/21 Unknown History amLODIPine 10 mg PO BID 06/02/21 06/02/21 Unknown History Active Meds: Active Medications Amlodipine Besylate (Amlodipine 10 Mg Tab) 10 mg PO DAILY [facility] Last Admin: 06/08/21 09:11 Dose: Not Given Aspirin (Aspirin 81 Mg Tab Chew) 81 mg PO QDAY [facility] Last Admin: 06/08/21 09:11 Dose: 81 mg Atorvastatin Calcium (Atorvastatin 40 Mg Tab) 40 mg PO QHS [facility] Last Admin: 06/07/21 21:11 Dose: 40 mg Citalopram Hydrobromide (Citalopram 10 Mg Tab) 10 mg PO QDAY [facility] Last Admin: 06/08/21 09:11 Dose: 10 mg Dextrose (Dextrose 10% *Hypoglycemia) 0 ml IV PRN PRN PRN Reason: Hypoglycemia Insulin Human Isoph/Insulin Regular (Insulin Nph/Regular 70/30 Inj) 30 unit [facility] Admin: 06/08/21 09:13 Dose: 30 unit Insulin Human Isoph/Insulin Regular (Insulin Nph/Regular 70/30 Inj) 5 unit SUB- Q QPM [facility] Last Admin: 06/07/21 19:26 Dose: Not Given Insulin Human Lispro (Insulin Lispro 100 Unit/Ml) 0 unit SUB-Q [facility]; Protocol Last Admin: 06/08/21 07:30 Dose: 3 unit Insulin Human Regular (Insulin Regular, Human 100 Units/1 Ml) 5 units SUB-Q [facility] Last Admin: 06/08/21 07:30 Dose: 5 units Lisinopril (Lisinopril 20 Mg Tab) 20 mg PO DAILY [facility] Last Admin: 06/08/21 09:12 Dose: Not Given Melatonin (Melatonin 5 Mg Tab) 5 mg PO QHS PRN PRN Reason: Sleep Pantoprazole Sodium (Pantoprazole 20 Mg Tab) 20 mg PO QDAY [facility] Last Admin: 06/08/21 09:11 Dose: 20 mg Trazodone HCl (Trazodone 50 Mg Tab) 50 mg PO QHS [facility] Last Admin: 06/07/21 21:10 Dose: 50 mg Valproic Acid (Valproic Acid 250 Mg/5 Ml Oral Liqd) 125 mg PO DAILY [facility] Last Admin: 06/08/21 09:11 Dose: 125 mg Results - Results Labs/Vitals: Laboratory Last Values WBC 7.4 K/mm3 (4.5-11.0) 06/02/21 07:34 RBC 4.72 M/mm3 (3.65-5.03) 06/02/21 07:34 Hgb 13.1 gm/dl (11.8-15.2) 06/02/21 07:34 Hct 40.7 % (35.5-45.6) 06/02/21 07:34 MCV 86 fl (84-94) 06/02/21 07:34 MCH 28 pg (28-32) 06/02/21 07:34 MCHC 32 % (32-34) 06/02/21 07:34 RDW 16.5 % (13.2-15.2) H 06/02/21 07:34 Plt Count 326 K/mm3 (140-440) 06/02/21 07:34 Lymph % (Auto) 40.0 % (13.4-35.0) H 06/02/21 07:34 [place] % (Auto) 9.8 % (0.0-7.3) H 06/02/21 07:34 Eos % (Auto) 3.9 % (0.0-4.3) 06/02/21 07:34 Baso % (Auto) 1.2 % (0.0-1.8) 06/02/21 07:34 Lymph # (Auto) 2.9 K/mm3 (1.2-5.4) 06/02/21 07:34 [place] # (Auto) 0.7 K/mm3 (0.0-0.8) 06/02/21 07:34 Eos # (Auto) 0.3 K/mm3 (0.0-0.4) 06/02/21 07:34 Baso # (Auto) 0.1 K/mm3 (0.0-0.1) 06/02/21 07:34 Seg Neutrophils % 45.1 % (40.0-70.0) 06/02/21 07:34 Seg Neutrophils # 3.3 K/mm3 (1.8-7.7) 06/02/21 07:34 Sodium 136 mmol/L (137-145) L 06/02/21 07:34 Potassium 4.1 mmol/L (3.6-5.0) 06/02/21 07:34 Chloride 100.3 mmol/L (98-107) 06/02/21 07:34 Carbon Dioxide 25 mmol/L (22-30) 06/02/21 07:34 Anion Gap 15 mmol/L 06/02/21 07:34 BUN 15 mg/dL (9-20) 06/02/21 07:34 Creatinine 0.7 mg/dL (0.8-1.3) L 06/02/21 07:34 Estimated GFR > 60 ml/min 06/02/21 07:34 BUN/Creatinine Ratio 21 % 06/02/21 07:34 Glucose 205 mg/dL (75-100) H 06/02/21 07:34 POC Glucose 221 mg/dL (70-105) H 06/08/21 06:11 Hemoglobin A1c 6.6 % (4-6) H 06/02/21 07:34 Calcium 9.7 mg/dL (8.4-10.2) 06/02/21 07:34 Total Bilirubin 0.40 mg/dL (0.1-1.2) 06/02/21 07:34 AST 25 units/L (5-40) 06/02/21 07:34 ALT 27 units/L (7-56) 06/02/21 07:34 Alkaline Phosphatase 70 units/L (35-129) 06/02/21 07:34 Total Protein 7.2 g/dL (6.3-8.2) 06/02/21 07:34 Albumin 3.9 g/dL (3.9-5) 06/02/21 07:34 Albumin/Globulin Ratio 1.2 % 06/02/21 07:34 Triglycerides 60 mg/dL (2-149) 06/02/21 07:34 Cholesterol 130 mg/dL (50-199) 06/02/21 07:34 LDL Cholesterol Direct 85 mg/dL (50-130) 06/02/21 07:34 HDL Cholesterol 35 mg/dL (40-59) L 06/02/21 07:34 Cholesterol/HDL Ratio 3.71 % 06/02/21 07:34 TSH 1.620 mlU/mL (0.270-4.200) 06/02/21 07:34 Urine Color Yellow (Yellow) 06/03/21 14:11 Urine Turbidity Clear (Clear) 06/03/21 14:11 Urine pH 5.0 (5.0-7.0) 06/03/21 14:11 Ur Specific [place] 1.015 (1.003-1.030) 06/03/21 14:11 Urine Protein <15 mg/dl mg/dL (Negative) 06/03/21 14:11 Urine Glucose (UA) >=500 mg/dL (Negative) 06/03/21 14:11 Urine Ketones Neg mg/dL (Negative) 06/03/21 14:11 Urine Blood Neg (Negative) 06/03/21 14:11 Urine Nitrite Neg (Negative) 06/03/21 14:11 Urine Bilirubin Neg (Negative) 06/03/21 14:11 Urine Urobilinogen < 2.0 mg/dL (<2.0) 06/03/21 14:11 Ur Leukocyte Esterase Neg (Negative) 06/03/21 14:11 Urine WBC (Auto) < 1.0 /HPF (0.0-6.0) 06/03/21 14:11 Urine RBC (Auto) 1.0 /HPF (0.0-6.0) 06/03/21 14:11 U Epithel Cells (Auto) 1.0 /HPF (0-13.0) 06/03/21 14:11 Urine Mucus Few /HPF 06/03/21 14:11 Last Vital Signs Temp 98.6 F 06/07/21 19:20 Pulse 62 06/07/21 19:20 Resp 16 06/07/21 19:20 BP 163/71 06/07/21 19:20 Pulse Ox 97 06/07/21 19:20
--- NOTE | 2021-06-08 20:52 | Progress Note ---
Assessment and Plan - Patient Problems (1) Vascular dementia with behavior disturbance Current Visit: Yes Status: Acute Plan to address problem: Verbal prompting, verbal redirection, benzodiazepine therapy as clinically indicated. (2) Cerebral atherosclerosis Current Visit: Yes Status: Acute Plan to address problem: Risk factor reduction therapy, antiplatelet therapy as clinically indicated. (3) HTN (hypertension) Current Visit: Yes Status: Acute Qualifiers: Hypertension type: primary hypertension Qualified Code(s): I10 - Essential (primary) hypertension Plan to address problem: Monitor blood pressure every shift, continue medical management (4) HLD (hyperlipidemia) Current Visit: Yes Status: Acute Qualifiers: Hyperlipidemia type: mixed hyperlipidemia Qualified Code(s): E78.2 - Mixed hyperlipidemia Plan to address problem: Low-cholesterol diet, supportive care, statin therapy as clinically indicated. (5) Diabetes Current Visit: Yes Status: Acute Plan to address problem: Consistent carbohydrate diet, Accu-Chek, insulin protocol, hypoglycemia protocol. (6) Nicotine dependence Current Visit: Yes Status: Acute Qualifiers: Nicotine product type: cigarettes Plan to address problem: Smoking cessation counseling, supportive care, continue medical management (7) JOHN (generalized anxiety disorder) Current Visit: Yes Status: Acute Plan to address problem: Benzodiazepine therapy as clinically indicated. (8) MDD (major depressive disorder) Current Visit: Yes Status: Acute Qualifiers: Major depression episode severity: unspecified Plan to address problem: Continue medical management, behavior change counseling, cognitive behavioral therapy. (9) Advance care planning Current Visit: Yes Status: Acute Plan to address problem: Disease education conducted, care plan discussed, diagnoses discussed, prognosis discussed, patient is full code. Patient acknowledges understanding and agree with care plan, +30 minutes. History Interval history: 70 YO Male with Vascular Dementia with Behavioral Disturbance, Cerebral Atherosclerosis, Nicotine Dependence, GERD, DM, HLD, HTN, JOHN, MDD admitted to [facility] for psychiatric stabilization. Consult placed by Dr. Bowden for medical management. Pt seen and evaluated in the recreation room. Patient justina ears to be at baseline level of cognition and function. Hospitalist Physical - Constitutional Vitals: Temp Pulse Resp BP Pulse Ox 98.9 F 76 17 123/71 91 06/08/21 19:17 06/08/21 19:17 06/08/21 19:17 06/08/21 19:17 06/08/21 19:17 General appearance: Present: no acute distress - EENT Eyes: Present: PERRL ENT: hearing decreased - Neck Neck: Present: supple - Respiratory Respiratory effort: normal Respiratory: bilateral: CTA - Cardiovascular Rhythm: regular Heart Sounds: Present: S1 & S2 - Extremities Extremities: no ischemia Peripheral Pulses: within normal limits - Abdominal General gastrointestinal: soft, non-tender, non-distended - Integumentary Integumentary: Present: clear, dry - Psychiatric Psychiatric: cooperative - Neurologic Neurologic: CNII-XII intact Results - Labs CBC & Chem 7: 06/02/21 07:34 06/02/21 07:34 Labs: Laboratory Last Values WBC 7.4 K/mm3 (4.5-11.0) 06/02/21 07:34 RBC 4.72 M/mm3 (3.65-5.03) 06/02/21 07:34 Hgb 13.1 gm/dl (11.8-15.2) 06/02/21 07:34 Hct 40.7 % (35.5-45.6) 06/02/21 07:34 MCV 86 fl (84-94) 06/02/21 07:34 MCH 28 pg (28-32) 06/02/21 07:34 MCHC 32 % (32-34) 06/02/21 07:34 RDW 16.5 % (13.2-15.2) H 06/02/21 07:34 Plt Count 326 K/mm3 (140-440) 06/02/21 07:34 Lymph % (Auto) 40.0 % (13.4-35.0) H 06/02/21 07:34 [place] % (Auto) 9.8 % (0.0-7.3) H 06/02/21 07:34 Eos % (Auto) 3.9 % (0.0-4.3) 06/02/21 07:34 Baso % (Auto) 1.2 % (0.0-1.8) 06/02/21 07:34 Lymph # (Auto) 2.9 K/mm3 (1.2-5.4) 06/02/21 07:34 [place] # (Auto) 0.7 K/mm3 (0.0-0.8) 06/02/21 07:34 Eos # (Auto) 0.3 K/mm3 (0.0-0.4) 06/02/21 07:34 Baso # (Auto) 0.1 K/mm3 (0.0-0.1) 06/02/21 07:34 Seg Neutrophils % 45.1 % (40.0-70.0) 06/02/21 07:34 Seg Neutrophils # 3.3 K/mm3 (1.8-7.7) 06/02/21 07:34 Sodium 136 mmol/L (137-145) L 06/02/21 07:34 Potassium 4.1 mmol/L (3.6-5.0) 06/02/21 07:34 Chloride 100.3 mmol/L (98-107) 06/02/21 07:34 Carbon Dioxide 25 mmol/L (22-30) 06/02/21 07:34 Anion Gap 15 mmol/L 06/02/21 07:34 BUN 15 mg/dL (9-20) 06/02/21 07:34 Creatinine 0.7 mg/dL (0.8-1.3) L 06/02/21 07:34 Estimated GFR > 60 ml/min 06/02/21 07:34 BUN/Creatinine Ratio 21 % 06/02/21 07:34 Glucose 205 mg/dL (75-100) H 06/02/21 07:34 POC Glucose 109 mg/dL (70-105) H 06/08/21 15:52 Hemoglobin A1c 6.6 % (4-6) H 06/02/21 07:34 Calcium 9.7 mg/dL (8.4-10.2) 06/02/21 07:34 Total Bilirubin 0.40 mg/dL (0.1-1.2) 06/02/21 07:34 AST 25 units/L (5-40) 06/02/21 07:34 ALT 27 units/L (7-56) 06/02/21 07:34 Alkaline Phosphatase 70 units/L (35-129) 06/02/21 07:34 Total Protein 7.2 g/dL (6.3-8.2) 06/02/21 07:34 Albumin 3.9 g/dL (3.9-5) 06/02/21 07:34 Albumin/Globulin Ratio 1.2 % 06/02/21 07:34 Triglycerides 60 mg/dL (2-149) 06/02/21 07:34 Cholesterol 130 mg/dL (50-199) 06/02/21 07:34 LDL Cholesterol Direct 85 mg/dL (50-130) 06/02/21 07:34 HDL Cholesterol 35 mg/dL (40-59) L 06/02/21 07:34 Cholesterol/HDL Ratio 3.71 % 06/02/21 07:34 TSH 1.620 mlU/mL (0.270-4.200) 06/02/21 07:34 Urine Color Yellow (Yellow) 06/03/21 14:11 Urine Turbidity Clear (Clear) 06/03/21 14:11 Urine pH 5.0 (5.0-7.0) 06/03/21 14:11 Ur Specific [place] 1.015 (1.003-1.030) 06/03/21 14:11 Urine Protein <15 mg/dl mg/dL (Negative) 06/03/21 14:11 Urine Glucose (UA) >=500 mg/dL (Negative) 06/03/21 14:11 Urine Ketones Neg mg/dL (Negative) 06/03/21 14:11 Urine Blood Neg (Negative) 06/03/21 14:11 Urine Nitrite Neg (Negative) 06/03/21 14:11 Urine Bilirubin Neg (Negative) 06/03/21 14:11 Urine Urobilinogen < 2.0 mg/dL (<2.0) 06/03/21 14:11 Ur Leukocyte Esterase Neg (Negative) 06/03/21 14:11 Urine WBC (Auto) < 1.0 /HPF (0.0-6.0) 06/03/21 14:11 Urine RBC (Auto) 1.0 /HPF (0.0-6.0) 06/03/21 14:11 U Epithel Cells (Auto) 1.0 /HPF (0-13.0) 06/03/21 14:11 Urine Mucus Few /HPF 06/03/21 14:11 Mares/IV: Voiding Method Toilet Active Medications - Current Medications Current Medications: Generic Name Dose Route Start Last Admin Trade Name Freq PRN Reason Stop Dose Admin Amlodipine Besylate 10 mg 06/03/21 10:00 06/08/21 09:11 Amlodipine 10 Mg Tab PO Not Given DAILY [facility] Aspirin 81 mg 06/02/21 10:00 06/08/21 09:11 Aspirin 81 Mg Tab Chew PO 81 mg QDAY COUNT INCLUDES THE [facility] Administration Atorvastatin Calcium 40 mg 06/02/21 22:00 06/07/21 21:11 Atorvastatin 40 Mg Tab PO 40 mg QHS [facility] Administration Citalopram Hydrobromide 10 mg 06/02/21 10:00 06/08/21 09:11 Citalopram 10 Mg Tab PO 10 mg QDAY [facility] Administration Dextrose 0 ml 06/02/21 11:45 Dextrose 10% *Hypoglycemia IV PRN PRN Hypoglycemia Insulin Human Isoph/Insulin Regular 30 unit 06/02/21 10:00 06/08/21 09:13 Insulin Nph/Regular 70/30 Inj SUB-Q 30 unit QAM COUNT [facility]CLUD[facility] Administration Insulin Human Isoph/Insulin Regular 5 unit 06/05/21 18:00 06/08/21 17:07 Insulin Nph/Regular 70/30 Inj SUB-Q 5 unit QPM COUNT INCLUDES [facility] Administration Insulin Human Lispro 0 unit 06/02/21 11:30 06/08/21 16:35 Insulin Lispro 100 Unit/Ml SUB-Q Not Given [facility] Protocol Insulin Human Regular 5 units 06/03/21 11:30 06/08/21 16:36 Insulin Regular, Human 100 Units/1 Ml SUB-Q Not Given [facility] Lisinopril 20 mg 06/03/21 08:55 06/08/21 09:12 Lisinopril 20 Mg Tab PO Not Given DAILY COUNT INCLUDES [facility] Melatonin 5 mg 06/02/21 01:27 Melatonin 5 Mg Tab PO QHS PRN Sleep Pantoprazole Sodium 20 mg 06/02/21 10:00 06/08/21 09:11 Pantoprazole 20 Mg Tab PO 20 mg QDAY COUNT INCLUDES [facility] Administration Trazodone HCl 50 mg 06/02/21 22:00 06/07/21 21:10 Trazodone 50 Mg Tab PO 50 mg QHS COUNT INCLUDES [facility] Administration Valproic Acid 125 mg 06/02/21 10:00 06/08/21 09:11 Valproic Acid 250 Mg/5 Ml Oral Liqd PO 125 mg DAILY [facility] Administration Nutrition/Malnutrition Assess - Dietary Evaluation Nutrition/Malnutrition Findings: Nutrition Notes Start: 06/08/21 10:22 Freq: Status: Active Protocol: Document 06/08/21 10:22 KEYANA (Rec: 06/08/21 10:24 [facility] [id number]) Nutrition Notes Need for Assessment generated from: LOS Initial or Follow up Brief Note Current Diet Cardiac/Consistent CHO Height 5 ft 10 in Weight 81.2 kg [place] Body Weight (kg) 75.45 BMI 25.7 Weight Status Overweight Subjective/Other Information Pt screened for LOS. He has consumed 100% of meals since admission. Percent of energy/protein needs met: 96% energy 100% pro Burn Absent Trauma Absent Current % PO Good (75-100%) Minimum of two criteria No Is patient on ventilator? No Is Patient Ambulatory and/or Out of Bed Yes REE-([place]. Jeor-ambulatory/OOB) [ 2050.72 [id number]] Calculation Used for Recommendations [place] or Additional Notes Pro needs 1-1.2g/k-97g/ day Fluid needs 1ml/kcal Nutrition Intervention Revisit per MD consult or patient Sign Off request:
--- NOTE | 2021-06-08 20:52 | Progress Note ---
Assessment and Plan - Patient Problems (1) Vascular dementia with behavior disturbance Current Visit: Yes Status: Acute Plan to address problem: Verbal prompting, verbal redirection, benzodiazepine therapy as clinically indicated. (2) Cerebral atherosclerosis Current Visit: Yes Status: Acute Plan to address problem: Risk factor reduction therapy, antiplatelet therapy as clinically indicated. (3) HTN (hypertension) Current Visit: Yes Status: Acute Qualifiers: Hypertension type: primary hypertension Qualified Code(s): I10 - Essential (primary) hypertension Plan to address problem: Monitor blood pressure every shift, continue medical management (4) HLD (hyperlipidemia) Current Visit: Yes Status: Acute Qualifiers: Hyperlipidemia type: mixed hyperlipidemia Qualified Code(s): E78.2 - Mixed hyperlipidemia Plan to address problem: Low-cholesterol diet, supportive care, statin therapy as clinically indicated. (5) Diabetes Current Visit: Yes Status: Acute Plan to address problem: Consistent carbohydrate diet, Accu-Chek, insulin protocol, hypoglycemia protocol. (6) Nicotine dependence Current Visit: Yes Status: Acute Qualifiers: Nicotine product type: cigarettes Plan to address problem: Smoking cessation counseling, supportive care, continue medical management (7) JOHN (generalized anxiety disorder) Current Visit: Yes Status: Acute Plan to address problem: Benzodiazepine therapy as clinically indicated. (8) MDD (major depressive disorder) Current Visit: Yes Status: Acute Qualifiers: Major depression episode severity: unspecified Plan to address problem: Continue medical management, behavior change counseling, cognitive behavioral therapy. (9) Advance care planning Current Visit: Yes Status: Acute Plan to address problem: Disease education conducted, care plan discussed, diagnoses discussed, prognosis discussed, patient is full code. Patient acknowledges understanding and agree with care plan, +30 minutes. History Interval history: 70 YO Male with Vascular Dementia with Behavioral Disturbance, Cerebral Atherosclerosis, Nicotine Dependence, GERD, DM, HLD, HTN, JOHN, MDD admitted to [facility] for psychiatric stabilization. Consult placed by Dr. Bowden for medical management. Pt seen and evaluated in the recreation room. Patient justina ears to be at baseline level of cognition and function. Hospitalist Physical - Constitutional Vitals: Temp Pulse Resp BP Pulse Ox 98.9 F 76 17 123/71 91 06/08/21 19:17 06/08/21 19:17 06/08/21 19:17 06/08/21 19:17 06/08/21 19:17 General appearance: Present: no acute distress - EENT Eyes: Present: PERRL ENT: hearing decreased - Neck Neck: Present: supple - Respiratory Respiratory effort: normal Respiratory: bilateral: diminished - Cardiovascular Rhythm: regular Heart Sounds: Present: S1 & S2 - Extremities Extremities: no ischemia Peripheral Pulses: within normal limits - Abdominal General gastrointestinal: soft, non-tender, non-distended - Integumentary Integumentary: Present: clear, dry - Psychiatric Psychiatric: cooperative - Neurologic Neurologic: CNII-XII intact Results - Labs CBC & Chem 7: 06/02/21 07:34 06/02/21 07:34 Labs: Laboratory Last Values WBC 7.4 K/mm3 (4.5-11.0) 06/02/21 07:34 RBC 4.72 M/mm3 (3.65-5.03) 06/02/21 07:34 Hgb 13.1 gm/dl (11.8-15.2) 06/02/21 07:34 Hct 40.7 % (35.5-45.6) 06/02/21 07:34 MCV 86 fl (84-94) 06/02/21 07:34 MCH 28 pg (28-32) 06/02/21 07:34 MCHC 32 % (32-34) 06/02/21 07:34 RDW 16.5 % (13.2-15.2) H 06/02/21 07:34 Plt Count 326 K/mm3 (140-440) 06/02/21 07:34 Lymph % (Auto) 40.0 % (13.4-35.0) H 06/02/21 07:34 [place] % (Auto) 9.8 % (0.0-7.3) H 06/02/21 07:34 Eos % (Auto) 3.9 % (0.0-4.3) 06/02/21 07:34 Baso % (Auto) 1.2 % (0.0-1.8) 06/02/21 07:34 Lymph # (Auto) 2.9 K/mm3 (1.2-5.4) 06/02/21 07:34 [place] # (Auto) 0.7 K/mm3 (0.0-0.8) 06/02/21 07:34 Eos # (Auto) 0.3 K/mm3 (0.0-0.4) 06/02/21 07:34 Baso # (Auto) 0.1 K/mm3 (0.0-0.1) 06/02/21 07:34 Seg Neutrophils % 45.1 % (40.0-70.0) 06/02/21 07:34 Seg Neutrophils # 3.3 K/mm3 (1.8-7.7) 06/02/21 07:34 Sodium 136 mmol/L (137-145) L 06/02/21 07:34 Potassium 4.1 mmol/L (3.6-5.0) 06/02/21 07:34 Chloride 100.3 mmol/L (98-107) 06/02/21 07:34 Carbon Dioxide 25 mmol/L (22-30) 06/02/21 07:34 Anion Gap 15 mmol/L 06/02/21 07:34 BUN 15 mg/dL (9-20) 06/02/21 07:34 Creatinine 0.7 mg/dL (0.8-1.3) L 06/02/21 07:34 Estimated GFR > 60 ml/min 06/02/21 07:34 BUN/Creatinine Ratio 21 % 06/02/21 07:34 Glucose 205 mg/dL (75-100) H 06/02/21 07:34 POC Glucose 109 mg/dL (70-105) H 06/08/21 15:52 Hemoglobin A1c 6.6 % (4-6) H 06/02/21 07:34 Calcium 9.7 mg/dL (8.4-10.2) 06/02/21 07:34 Total Bilirubin 0.40 mg/dL (0.1-1.2) 06/02/21 07:34 AST 25 units/L (5-40) 06/02/21 07:34 ALT 27 units/L (7-56) 06/02/21 07:34 Alkaline Phosphatase 70 units/L (35-129) 06/02/21 07:34 Total Protein 7.2 g/dL (6.3-8.2) 06/02/21 07:34 Albumin 3.9 g/dL (3.9-5) 06/02/21 07:34 Albumin/Globulin Ratio 1.2 % 06/02/21 07:34 Triglycerides 60 mg/dL (2-149) 06/02/21 07:34 Cholesterol 130 mg/dL (50-199) 06/02/21 07:34 LDL Cholesterol Direct 85 mg/dL (50-130) 06/02/21 07:34 HDL Cholesterol 35 mg/dL (40-59) L 06/02/21 07:34 Cholesterol/HDL Ratio 3.71 % 06/02/21 07:34 TSH 1.620 mlU/mL (0.270-4.200) 06/02/21 07:34 Urine Color Yellow (Yellow) 06/03/21 14:11 Urine Turbidity Clear (Clear) 06/03/21 14:11 Urine pH 5.0 (5.0-7.0) 06/03/21 14:11 Ur Specific [place] 1.015 (1.003-1.030) 06/03/21 14:11 Urine Protein <15 mg/dl mg/dL (Negative) 06/03/21 14:11 Urine Glucose (UA) >=500 mg/dL (Negative) 06/03/21 14:11 Urine Ketones Neg mg/dL (Negative) 06/03/21 14:11 Urine Blood Neg (Negative) 06/03/21 14:11 Urine Nitrite Neg (Negative) 06/03/21 14:11 Urine Bilirubin Neg (Negative) 06/03/21 14:11 Urine Urobilinogen < 2.0 mg/dL (<2.0) 06/03/21 14:11 Ur Leukocyte Esterase Neg (Negative) 06/03/21 14:11 Urine WBC (Auto) < 1.0 /HPF (0.0-6.0) 06/03/21 14:11 Urine RBC (Auto) 1.0 /HPF (0.0-6.0) 06/03/21 14:11 U Epithel Cells (Auto) 1.0 /HPF (0-13.0) 06/03/21 14:11 Urine Mucus Few /HPF 06/03/21 14:11 Mares/IV: Voiding Method Toilet Active Medications - Current Medications Current Medications: Generic Name Dose Route Start Last Admin Trade Name Freq PRN Reason Stop Dose Admin Amlodipine Besylate 10 mg 06/03/21 10:00 06/08/21 09:11 Amlodipine 10 Mg Tab PO Not Given DAILY [facility] Aspirin 81 mg 06/02/21 10:00 06/08/21 09:11 Aspirin 81 Mg Tab Chew PO 81 mg QDAY [facility] Administration Atorvastatin Calcium 40 mg 06/02/21 22:00 06/07/21 21:11 Atorvastatin 40 Mg Tab PO 40 mg QHS [facility] Administration Citalopram Hydrobromide 10 mg 06/02/21 10:00 06/08/21 09:11 Citalopram 10 Mg Tab PO 10 mg QDAY [facility] Administration Dextrose 0 ml 06/02/21 11:45 Dextrose 10% *Hypoglycemia IV PRN PRN Hypoglycemia Insulin Human Isoph/Insulin Regular 30 unit 06/02/21 10:00 06/08/21 09:13 Insulin Nph/Regular 70/30 Inj SUB-Q 30 unit QAM [facility] Administration Insulin Human Isoph/Insulin Regular 5 unit 06/05/21 18:00 06/08/21 17:07 Insulin Nph/Regular 70/30 Inj SUB-Q 5 unit QPM [facility] Administration Insulin Human Lispro 0 unit 06/02/21 11:30 06/08/21 16:35 Insulin Lispro 100 Unit/Ml SUB-Q Not Given [facility] Protocol Insulin Human Regular 5 units 06/03/21 11:30 06/08/21 16:36 Insulin Regular, Human 100 Units/1 Ml SUB-Q Not Given [facility] Lisinopril 20 mg 06/03/21 08:55 06/08/21 09:12 Lisinopril 20 Mg Tab PO Not Given DAILY [facility] Melatonin 5 mg 06/02/21 01:27 Melatonin 5 Mg Tab PO QHS PRN Sleep Pantoprazole Sodium 20 mg 06/02/21 10:00 06/08/21 09:11 Pantoprazole 20 Mg Tab PO 20 mg QDAY [facility] Administration Trazodone HCl 50 mg 06/02/21 22:00 06/07/21 21:10 Trazodone 50 Mg Tab PO 50 mg QHS [facility] Administration Valproic Acid 125 mg 06/02/21 10:00 06/08/21 09:11 Valproic Acid 250 Mg/5 Ml Oral Liqd PO 125 mg DAILY [facility] Administration Nutrition/Malnutrition Assess - Dietary Evaluation Nutrition/Malnutrition Findings: Nutrition Notes Start: 06/08/21 10:22 Freq: Status: Active Protocol: Document 06/08/21 10:22 KEYANA (Rec: 06/08/21 10:24 [facility] [id number]) Nutrition Notes Need for Assessment generated from: LOS Initial or Follow up Brief Note Current Diet Cardiac/Consistent CHO Height 5 ft 10 in Weight 81.2 kg [place] Body Weight (kg) 75.45 BMI 25.7 Weight Status Overweight Subjective/Other Information Pt screened for LOS. He has consumed 100% of meals since admission. Percent of energy/protein needs met: 96% energy 100% pro Burn Absent Trauma Absent Current % PO Good (75-100%) Minimum of two criteria No Is patient on ventilator? No Is Patient Ambulatory and/or Out of Bed Yes REE-([place]. Jeor-ambulatory/OOB) [ 2050.72 NUTR.MSJOOB] Calculation Used for Recommendations [place] or Additional Notes Pro needs 1-1.2g/k-97g/ day Fluid needs 1ml/kcal Nutrition Intervention Revisit per MD consult or patient Sign Off request:
--- NOTE | 2021-06-08 20:53 | Progress Note ---
Assessment and Plan - Patient Problems (1) Vascular dementia with behavior disturbance Current Visit: Yes Status: Acute Plan to address problem: Verbal prompting, verbal redirection, benzodiazepine therapy as clinically indicated. (2) Cerebral atherosclerosis Current Visit: Yes Status: Acute Plan to address problem: Risk factor reduction therapy, antiplatelet therapy as clinically indicated. (3) HTN (hypertension) Current Visit: Yes Status: Acute Qualifiers: Hypertension type: primary hypertension Qualified Code(s): I10 - Essential (primary) hypertension Plan to address problem: Monitor blood pressure every shift, continue medical management (4) HLD (hyperlipidemia) Current Visit: Yes Status: Acute Qualifiers: Hyperlipidemia type: mixed hyperlipidemia Qualified Code(s): E78.2 - Mixed hyperlipidemia Plan to address problem: Low-cholesterol diet, supportive care, statin therapy as clinically indicated. (5) Diabetes Current Visit: Yes Status: Acute Plan to address problem: Consistent carbohydrate diet, Accu-Chek, insulin protocol, hypoglycemia protocol. (6) Nicotine dependence Current Visit: Yes Status: Acute Qualifiers: Nicotine product type: cigarettes Plan to address problem: Smoking cessation counseling, supportive care, continue medical management (7) JOHN (generalized anxiety disorder) Current Visit: Yes Status: Acute Plan to address problem: Benzodiazepine therapy as clinically indicated. (8) MDD (major depressive disorder) Current Visit: Yes Status: Acute Qualifiers: Major depression episode severity: unspecified Plan to address problem: Continue medical management, behavior change counseling, cognitive behavioral therapy. (9) Advance care planning Current Visit: Yes Status: Acute Plan to address problem: Disease education conducted, care plan discussed, diagnoses discussed, prognosis discussed, patient is full code. Patient acknowledges understanding and agree with care plan, +30 minutes. History Interval history: 70 YO Male with Vascular Dementia with Behavioral Disturbance, Cerebral Atherosclerosis, Nicotine Dependence, GERD, DM, HLD, HTN, JOHN, MDD admitted to [facility] for psychiatric stabilization. Consult placed by Dr. Bowden for medical management. Pt seen and evaluated in the recreation room. Patient justina ears to be at baseline level of cognition and function. Hospitalist Physical - Constitutional Vitals: Temp Pulse Resp BP Pulse Ox 98.9 F 76 17 123/71 91 06/08/21 19:17 06/08/21 19:17 06/08/21 19:17 06/08/21 19:17 06/08/21 19:17 General appearance: Present: no acute distress - EENT Eyes: Present: PERRL ENT: hearing decreased - Neck Neck: Present: supple - Respiratory Respiratory effort: normal Respiratory: bilateral: CTA - Cardiovascular Rhythm: regular Heart Sounds: Present: S1 & S2 - Extremities Extremities: no ischemia Peripheral Pulses: within normal limits - Abdominal General gastrointestinal: soft, non-tender, non-distended - Integumentary Integumentary: Present: clear, dry - Psychiatric Psychiatric: cooperative - Neurologic Neurologic: CNII-XII intact Results - Labs CBC & Chem 7: 06/02/21 07:34 06/02/21 07:34 Labs: Laboratory Last Values WBC 7.4 K/mm3 (4.5-11.0) 06/02/21 07:34 RBC 4.72 M/mm3 (3.65-5.03) 06/02/21 07:34 Hgb 13.1 gm/dl (11.8-15.2) 06/02/21 07:34 Hct 40.7 % (35.5-45.6) 06/02/21 07:34 MCV 86 fl (84-94) 06/02/21 07:34 MCH 28 pg (28-32) 06/02/21 07:34 MCHC 32 % (32-34) 06/02/21 07:34 RDW 16.5 % (13.2-15.2) H 06/02/21 07:34 Plt Count 326 K/mm3 (140-440) 06/02/21 07:34 Lymph % (Auto) 40.0 % (13.4-35.0) H 06/02/21 07:34 [place] % (Auto) 9.8 % (0.0-7.3) H 06/02/21 07:34 Eos % (Auto) 3.9 % (0.0-4.3) 06/02/21 07:34 Baso % (Auto) 1.2 % (0.0-1.8) 06/02/21 07:34 Lymph # (Auto) 2.9 K/mm3 (1.2-5.4) 06/02/21 07:34 [place] # (Auto) 0.7 K/mm3 (0.0-0.8) 06/02/21 07:34 Eos # (Auto) 0.3 K/mm3 (0.0-0.4) 06/02/21 07:34 Baso # (Auto) 0.1 K/mm3 (0.0-0.1) 06/02/21 07:34 Seg Neutrophils % 45.1 % (40.0-70.0) 06/02/21 07:34 Seg Neutrophils # 3.3 K/mm3 (1.8-7.7) 06/02/21 07:34 Sodium 136 mmol/L (137-145) L 06/02/21 07:34 Potassium 4.1 mmol/L (3.6-5.0) 06/02/21 07:34 Chloride 100.3 mmol/L (98-107) 06/02/21 07:34 Carbon Dioxide 25 mmol/L (22-30) 06/02/21 07:34 Anion Gap 15 mmol/L 06/02/21 07:34 BUN 15 mg/dL (9-20) 06/02/21 07:34 Creatinine 0.7 mg/dL (0.8-1.3) L 06/02/21 07:34 Estimated GFR > 60 ml/min 06/02/21 07:34 BUN/Creatinine Ratio 21 % 06/02/21 07:34 Glucose 205 mg/dL (75-100) H 06/02/21 07:34 POC Glucose 109 mg/dL (70-105) H 06/08/21 15:52 Hemoglobin A1c 6.6 % (4-6) H 06/02/21 07:34 Calcium 9.7 mg/dL (8.4-10.2) 06/02/21 07:34 Total Bilirubin 0.40 mg/dL (0.1-1.2) 06/02/21 07:34 AST 25 units/L (5-40) 06/02/21 07:34 ALT 27 units/L (7-56) 06/02/21 07:34 Alkaline Phosphatase 70 units/L (35-129) 06/02/21 07:34 Total Protein 7.2 g/dL (6.3-8.2) 06/02/21 07:34 Albumin 3.9 g/dL (3.9-5) 06/02/21 07:34 Albumin/Globulin Ratio 1.2 % 06/02/21 07:34 Triglycerides 60 mg/dL (2-149) 06/02/21 07:34 Cholesterol 130 mg/dL (50-199) 06/02/21 07:34 LDL Cholesterol Direct 85 mg/dL (50-130) 06/02/21 07:34 HDL Cholesterol 35 mg/dL (40-59) L 06/02/21 07:34 Cholesterol/HDL Ratio 3.71 % 06/02/21 07:34 TSH 1.620 mlU/mL (0.270-4.200) 06/02/21 07:34 Urine Color Yellow (Yellow) 06/03/21 14:11 Urine Turbidity Clear (Clear) 06/03/21 14:11 Urine pH 5.0 (5.0-7.0) 06/03/21 14:11 Ur Specific [place] 1.015 (1.003-1.030) 06/03/21 14:11 Urine Protein <15 mg/dl mg/dL (Negative) 06/03/21 14:11 Urine Glucose (UA) >=500 mg/dL (Negative) 06/03/21 14:11 Urine Ketones Neg mg/dL (Negative) 06/03/21 14:11 Urine Blood Neg (Negative) 06/03/21 14:11 Urine Nitrite Neg (Negative) 06/03/21 14:11 Urine Bilirubin Neg (Negative) 06/03/21 14:11 Urine Urobilinogen < 2.0 mg/dL (<2.0) 06/03/21 14:11 Ur Leukocyte Esterase Neg (Negative) 06/03/21 14:11 Urine WBC (Auto) < 1.0 /HPF (0.0-6.0) 06/03/21 14:11 Urine RBC (Auto) 1.0 /HPF (0.0-6.0) 06/03/21 14:11 U Epithel Cells (Auto) 1.0 /HPF (0-13.0) 06/03/21 14:11 Urine Mucus Few /HPF 06/03/21 14:11 Mares/IV: Voiding Method Toilet Active Medications - Current Medications Current Medications: Generic Name Dose Route Start Last Admin Trade Name Freq PRN Reason Stop Dose Admin Amlodipine Besylate 10 mg 06/03/21 10:00 06/08/21 09:11 Amlodipine 10 Mg Tab PO Not Given DAILY [facility] Aspirin 81 mg 06/02/21 10:00 06/08/21 09:11 Aspirin 81 Mg Tab Chew PO 81 mg QDAY [facility] Administration Atorvastatin Calcium 40 mg 06/02/21 22:00 06/07/21 21:11 Atorvastatin 40 Mg Tab PO 40 mg QHS [facility] Administration Citalopram Hydrobromide 10 mg 06/02/21 10:00 06/08/21 09:11 Citalopram 10 Mg Tab PO 10 mg QDAY [facility] Administration Dextrose 0 ml 06/02/21 11:45 Dextrose 10% *Hypoglycemia IV PRN PRN Hypoglycemia Insulin Human Isoph/Insulin Regular 30 unit 06/02/21 10:00 06/08/21 09:13 Insulin Nph/Regular 70/30 Inj SUB-Q 30 unit QAM [facility] Administration Insulin Human Isoph/Insulin Regular 5 unit 06/05/21 18:00 06/08/21 17:07 Insulin Nph/Regular 70/30 Inj SUB-Q 5 unit QPM [facility] Administration Insulin Human Lispro 0 unit 06/02/21 11:30 06/08/21 16:35 Insulin Lispro 100 Unit/Ml SUB-Q Not Given [facility] Protocol Insulin Human Regular 5 units 06/03/21 11:30 06/08/21 16:36 Insulin Regular, Human 100 Units/1 Ml SUB-Q Not Given [facility] Lisinopril 20 mg 06/03/21 08:55 06/08/21 09:12 Lisinopril 20 Mg Tab PO Not Given DAILY [facility] Melatonin 5 mg 06/02/21 01:27 Melatonin 5 Mg Tab PO QHS PRN Sleep Pantoprazole Sodium 20 mg 06/02/21 10:00 06/08/21 09:11 Pantoprazole 20 Mg Tab PO 20 mg QDAY [facility] Administration Trazodone HCl 50 mg 06/02/21 22:00 06/07/21 21:10 Trazodone 50 Mg Tab PO 50 mg QHS [facility] Administration Valproic Acid 125 mg 06/02/21 10:00 06/08/21 09:11 Valproic Acid 250 Mg/5 Ml Oral Liqd PO 125 mg DAILY [facility] Administration Nutrition/Malnutrition Assess - Dietary Evaluation Nutrition/Malnutrition Findings: Nutrition Notes Start: 06/08/21 10:22 Freq: Status: Active Protocol: Document 06/08/21 10:22 KEYANA (Rec: 06/08/21 10:24 [email or web address] [id number]) Nutrition Notes Need for Assessment generated from: LOS Initial or Follow up Brief Note Current Diet Cardiac/Consistent CHO Height 5 ft 10 in Weight 81.2 kg [place] Body Weight (kg) 75.45 BMI 25.7 Weight Status Overweight Subjective/Other Information Pt screened for LOS. He has consumed 100% of meals since admission. Percent of energy/protein needs met: 96% energy 100% pro Burn Absent Trauma Absent Current % PO Good (75-100%) Minimum of two criteria No Is patient on ventilator? No Is Patient Ambulatory and/or Out of Bed Yes REE-([place]. Jeor-ambulatory/OOB) [ 2050.72 NUTR.MSJOOB] Calculation Used for Recommendations [place] or Additional Notes Pro needs 1-1.2g/k-97g/ day Fluid needs 1ml/kcal Nutrition Intervention Revisit per MD consult or patient Sign Off request:
--- NOTE | 2021-06-08 20:54 | Progress Note ---
Assessment and Plan - Patient Problems (1) Vascular dementia with behavior disturbance Current Visit: Yes Status: Acute Plan to address problem: Verbal prompting, verbal redirection, benzodiazepine therapy as clinically indicated. (2) Cerebral atherosclerosis Current Visit: Yes Status: Acute Plan to address problem: Risk factor reduction therapy, antiplatelet therapy as clinically indicated. (3) HTN (hypertension) Current Visit: Yes Status: Acute Qualifiers: Hypertension type: primary hypertension Qualified Code(s): I10 - Essential (primary) hypertension Plan to address problem: Monitor blood pressure every shift, continue medical management (4) HLD (hyperlipidemia) Current Visit: Yes Status: Acute Qualifiers: Hyperlipidemia type: mixed hyperlipidemia Qualified Code(s): E78.2 - Mixed hyperlipidemia Plan to address problem: Low-cholesterol diet, supportive care, statin therapy as clinically indicated. (5) Diabetes Current Visit: Yes Status: Acute Plan to address problem: Consistent carbohydrate diet, Accu-Chek, insulin protocol, hypoglycemia protocol. (6) Nicotine dependence Current Visit: Yes Status: Acute Qualifiers: Nicotine product type: cigarettes Plan to address problem: Smoking cessation counseling, supportive care, continue medical management (7) JOHN (generalized anxiety disorder) Current Visit: Yes Status: Acute Plan to address problem: Benzodiazepine therapy as clinically indicated. (8) MDD (major depressive disorder) Current Visit: Yes Status: Acute Qualifiers: Major depression episode severity: unspecified Plan to address problem: Continue medical management, behavior change counseling, cognitive behavioral therapy. (9) Advance care planning Current Visit: Yes Status: Acute Plan to address problem: Disease education conducted, care plan discussed, diagnoses discussed, prognosis discussed, patient is full code. Patient acknowledges understanding and agree with care plan, +30 minutes. History Interval history: 70 YO Male with Vascular Dementia with Behavioral Disturbance, Cerebral Atherosclerosis, Nicotine Dependence, GERD, DM, HLD, HTN, JOHN, MDD admitted to [facility] for psychiatric stabilization. Consult placed by Dr. Bowden for medical management. Pt seen and evaluated in the recreation room. Patient justina ears to be at baseline level of cognition and function. Hospitalist Physical - Constitutional Vitals: Temp Pulse Resp BP Pulse Ox 98.9 F 76 17 123/71 91 06/08/21 19:17 06/08/21 19:17 06/08/21 19:17 06/08/21 19:17 06/08/21 19:17 General appearance: Present: no acute distress - EENT Eyes: Present: PERRL ENT: hearing decreased - Neck Neck: Present: supple - Respiratory Respiratory effort: normal Respiratory: bilateral: CTA - Cardiovascular Rhythm: regular Heart Sounds: Present: S1 & S2 - Extremities Extremities: no ischemia Peripheral Pulses: within normal limits - Abdominal General gastrointestinal: soft, non-tender, non-distended - Integumentary Integumentary: Present: clear, dry - Psychiatric Psychiatric: cooperative - Neurologic Neurologic: CNII-XII intact Results - Labs CBC & Chem 7: 06/02/21 07:34 06/02/21 07:34 Labs: Laboratory Last Values WBC 7.4 K/mm3 (4.5-11.0) 06/02/21 07:34 RBC 4.72 M/mm3 (3.65-5.03) 06/02/21 07:34 Hgb 13.1 gm/dl (11.8-15.2) 06/02/21 07:34 Hct 40.7 % (35.5-45.6) 06/02/21 07:34 MCV 86 fl (84-94) 06/02/21 07:34 MCH 28 pg (28-32) 06/02/21 07:34 MCHC 32 % (32-34) 06/02/21 07:34 RDW 16.5 % (13.2-15.2) H 06/02/21 07:34 Plt Count 326 K/mm3 (140-440) 06/02/21 07:34 Lymph % (Auto) 40.0 % (13.4-35.0) H 06/02/21 07:34 [place] % (Auto) 9.8 % (0.0-7.3) H 06/02/21 07:34 Eos % (Auto) 3.9 % (0.0-4.3) 06/02/21 07:34 Baso % (Auto) 1.2 % (0.0-1.8) 06/02/21 07:34 Lymph # (Auto) 2.9 K/mm3 (1.2-5.4) 06/02/21 07:34 [place] # (Auto) 0.7 K/mm3 (0.0-0.8) 06/02/21 07:34 Eos # (Auto) 0.3 K/mm3 (0.0-0.4) 06/02/21 07:34 Baso # (Auto) 0.1 K/mm3 (0.0-0.1) 06/02/21 07:34 Seg Neutrophils % 45.1 % (40.0-70.0) 06/02/21 07:34 Seg Neutrophils # 3.3 K/mm3 (1.8-7.7) 06/02/21 07:34 Sodium 136 mmol/L (137-145) L 06/02/21 07:34 Potassium 4.1 mmol/L (3.6-5.0) 06/02/21 07:34 Chloride 100.3 mmol/L (98-107) 06/02/21 07:34 Carbon Dioxide 25 mmol/L (22-30) 06/02/21 07:34 Anion Gap 15 mmol/L 06/02/21 07:34 BUN 15 mg/dL (9-20) 06/02/21 07:34 Creatinine 0.7 mg/dL (0.8-1.3) L 06/02/21 07:34 Estimated GFR > 60 ml/min 06/02/21 07:34 BUN/Creatinine Ratio 21 % 06/02/21 07:34 Glucose 205 mg/dL (75-100) H 06/02/21 07:34 POC Glucose 109 mg/dL (70-105) H 06/08/21 15:52 Hemoglobin A1c 6.6 % (4-6) H 06/02/21 07:34 Calcium 9.7 mg/dL (8.4-10.2) 06/02/21 07:34 Total Bilirubin 0.40 mg/dL (0.1-1.2) 06/02/21 07:34 AST 25 units/L (5-40) 06/02/21 07:34 ALT 27 units/L (7-56) 06/02/21 07:34 Alkaline Phosphatase 70 units/L (35-129) 06/02/21 07:34 Total Protein 7.2 g/dL (6.3-8.2) 06/02/21 07:34 Albumin 3.9 g/dL (3.9-5) 06/02/21 07:34 Albumin/Globulin Ratio 1.2 % 06/02/21 07:34 Triglycerides 60 mg/dL (2-149) 06/02/21 07:34 Cholesterol 130 mg/dL (50-199) 06/02/21 07:34 LDL Cholesterol Direct 85 mg/dL (50-130) 06/02/21 07:34 HDL Cholesterol 35 mg/dL (40-59) L 06/02/21 07:34 Cholesterol/HDL Ratio 3.71 % 06/02/21 07:34 TSH 1.620 mlU/mL (0.270-4.200) 06/02/21 07:34 Urine Color Yellow (Yellow) 06/03/21 14:11 Urine Turbidity Clear (Clear) 06/03/21 14:11 Urine pH 5.0 (5.0-7.0) 06/03/21 14:11 Ur Specific [place] 1.015 (1.003-1.030) 06/03/21 14:11 Urine Protein <15 mg/dl mg/dL (Negative) 06/03/21 14:11 Urine Glucose (UA) >=500 mg/dL (Negative) 06/03/21 14:11 Urine Ketones Neg mg/dL (Negative) 06/03/21 14:11 Urine Blood Neg (Negative) 06/03/21 14:11 Urine Nitrite Neg (Negative) 06/03/21 14:11 Urine Bilirubin Neg (Negative) 06/03/21 14:11 Urine Urobilinogen < 2.0 mg/dL (<2.0) 06/03/21 14:11 Ur Leukocyte Esterase Neg (Negative) 06/03/21 14:11 Urine WBC (Auto) < 1.0 /HPF (0.0-6.0) 06/03/21 14:11 Urine RBC (Auto) 1.0 /HPF (0.0-6.0) 06/03/21 14:11 U Epithel Cells (Auto) 1.0 /HPF (0-13.0) 06/03/21 14:11 Urine Mucus Few /HPF 06/03/21 14:11 [place]/IV: Voiding Method Toilet Active Medications - Current Medications Current Medications: Generic Name Dose Route Start Last Admin Trade Name Freq PRN Reason Stop Dose Admin Amlodipine Besylate 10 mg 06/03/21 10:00 06/08/21 09:11 Amlodipine 10 Mg Tab PO Not Given DAILY [facility] Aspirin 81 mg 06/02/21 10:00 06/08/21 09:11 Aspirin 81 Mg Tab Chew PO 81 mg QDAY [facility] Administration Atorvastatin Calcium 40 mg 06/02/21 22:00 06/07/21 21:11 Atorvastatin 40 Mg Tab PO 40 mg QHS [facility] Administration Citalopram Hydrobromide 10 mg 06/02/21 10:00 06/08/21 09:11 Citalopram 10 Mg Tab PO 10 mg QDAY [facility] Administration Dextrose 0 ml 06/02/21 11:45 Dextrose 10% *Hypoglycemia IV PRN PRN Hypoglycemia Insulin Human Isoph/Insulin Regular 30 unit 06/02/21 10:00 06/08/21 09:13 Insulin Nph/Regular 70/30 Inj SUB-Q 30 unit QAM [facility] Administration Insulin Human Isoph/Insulin Regular 5 unit 06/05/21 18:00 06/08/21 17:07 Insulin Nph/Regular 70/30 Inj SUB-Q 5 unit QPM [facility] Administration Insulin Human Lispro 0 unit 06/02/21 11:30 06/08/21 16:35 Insulin Lispro 100 Unit/Ml SUB-Q Not Given [facility] Protocol Insulin Human Regular 5 units 06/03/21 11:30 06/08/21 16:36 Insulin Regular, Human 100 Units/1 Ml SUB-Q Not Given [facility] Lisinopril 20 mg 06/03/21 08:55 06/08/21 09:12 Lisinopril 20 Mg Tab PO Not Given DAILY [facility] Melatonin 5 mg 06/02/21 01:27 Melatonin 5 Mg Tab PO QHS PRN Sleep Pantoprazole Sodium 20 mg 06/02/21 10:00 06/08/21 09:11 Pantoprazole 20 Mg Tab PO 20 mg QDAY [facility] Administration Trazodone HCl 50 mg 06/02/21 22:00 06/07/21 21:10 Trazodone 50 Mg Tab PO 50 mg QHS [facility] Administration Valproic Acid 125 mg 06/02/21 10:00 06/08/21 09:11 Valproic Acid 250 Mg/5 Ml Oral Liqd PO 125 mg DAILY [facility] Administration Nutrition/Malnutrition Assess - Dietary Evaluation Nutrition/Malnutrition Findings: Nutrition Notes Start: 06/08/21 10:22 Freq: Status: Active Protocol: Document 06/08/21 10:22 KEYANA (Rec: 06/08/21 10:24 [facility] [id number]) Nutrition Notes Need for Assessment generated from: LOS Initial or Follow up Brief Note Current Diet Cardiac/Consistent CHO Height 5 ft 10 in Weight 81.2 kg [place] Body Weight (kg) 75.45 BMI 25.7 Weight Status Overweight Subjective/Other Information Pt screened for LOS. He has consumed 100% of meals since admission. Percent of energy/protein needs met: 96% energy 100% pro Burn Absent Trauma Absent Current % PO Good (75-100%) Minimum of two criteria No Is patient on ventilator? No Is Patient Ambulatory and/or Out of Bed Yes REE-([place]. Jeor-ambulatory/OOB) [ 2050.72 NUTR.[id number]] Calculation Used for Recommendations [place] or Additional Notes Pro needs 1-1.2g/k-97g/ day Fluid needs 1ml/kcal Nutrition Intervention Revisit per MD consult or patient Sign Off request:
[2021-06-08] MEDS: traZODone 50 MG TAB PO SCH (21:20)
[2021-06-09] MEDS: INSULIN REGULAR, HUMAN 100 UNITS/1 ML SUB-Q SCH ×4 (07:54→21:08)
[2021-06-09] MEDS: INSULIN LISPRO 100 UNIT/ML SUB-Q SCH ×4 (08:00→21:09)
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
[2021-06-09] MEDS: amLODIPine 10 MG TAB PO SCH (10:10)
[2021-06-09] MEDS: VALPROIC ACID 250 MG/5 ML ORAL LIQD PO SCH (10:10)
[2021-06-09] MEDS: ASPIRIN 81 MG TAB CHEW PO SCH (10:10)
[2021-06-09] MEDS: LISINOPRIL 20 MG TAB PO SCH (10:10)
[2021-06-09] MEDS: CITALOPRAM 10 MG TAB PO SCH (10:10)
[2021-06-09] MEDS: PANTOPRAZOLE 20 MG TAB PO SCH (10:11)
[2021-06-09] MEDS: INSULIN NPH/REGULAR 70/30 INJ SUB-Q SCH ×2 (10:15→18:49)
--- NOTE | 2021-06-09 20:47 | Progress Note ---
Assessment and Plan - Patient Problems (1) Vascular dementia with behavior disturbance Current Visit: Yes Status: Acute Plan to address problem: Verbal prompting, verbal redirection, benzodiazepine therapy as clinically indicated. (2) Cerebral atherosclerosis Current Visit: Yes Status: Acute Plan to address problem: Risk factor reduction therapy, antiplatelet therapy as clinically indicated. (3) HTN (hypertension) Current Visit: Yes Status: Acute Qualifiers: Hypertension type: primary hypertension Qualified Code(s): I10 - Essential (primary) hypertension Plan to address problem: Monitor blood pressure every shift, continue medical management (4) HLD (hyperlipidemia) Current Visit: Yes Status: Acute Qualifiers: Hyperlipidemia type: mixed hyperlipidemia Qualified Code(s): E78.2 - Mixed hyperlipidemia Plan to address problem: Low-cholesterol diet, supportive care, statin therapy as clinically indicated. (5) Diabetes Current Visit: Yes Status: Acute Plan to address problem: Consistent carbohydrate diet, Accu-Chek, insulin protocol, hypoglycemia protocol. (6) Nicotine dependence Current Visit: Yes Status: Acute Qualifiers: Nicotine product type: cigarettes Plan to address problem: Smoking cessation counseling, supportive care, continue medical management (7) JOHN (generalized anxiety disorder) Current Visit: Yes Status: Acute Plan to address problem: Benzodiazepine therapy as clinically indicated. (8) MDD (major depressive disorder) Current Visit: Yes Status: Acute Qualifiers: Major depression episode severity: unspecified Plan to address problem: Continue medical management, behavior change counseling, cognitive behavioral therapy. (9) Advance care planning Current Visit: Yes Status: Acute Plan to address problem: Disease education conducted, care plan discussed, diagnoses discussed, prognosis discussed, patient is full code. Patient acknowledges understanding and agree with care plan, +30 minutes. History Interval history: 70 YO Male with Vascular Dementia with Behavioral Disturbance, Cerebral Atherosclerosis, Nicotine Dependence, GERD, DM, HLD, HTN, JOHN, MDD admitted to [facility] for psychiatric stabilization. Consult placed by Dr. Bowden for medical management. Pt seen and evaluated in the recreation room. Patient justina ears to be at baseline level of cognition and function. Hospitalist Physical - Constitutional Vitals: Temp Pulse Resp BP Pulse Ox 98.8 F 62 16 161/70 96 06/09/21 19:41 06/09/21 19:41 06/09/21 19:41 06/09/21 19:41 06/09/21 19:41 General appearance: Present: no acute distress - EENT Eyes: Present: PERRL ENT: hearing decreased - Neck Neck: Present: supple - Respiratory Respiratory effort: normal Respiratory: bilateral: diminished - Cardiovascular Rhythm: regular Heart Sounds: Present: S1 & S2 - Extremities Extremities: no ischemia Peripheral Pulses: within normal limits - Abdominal General gastrointestinal: soft, non-tender, non-distended - Integumentary Integumentary: Present: clear, dry - Psychiatric Psychiatric: cooperative - Neurologic Neurologic: CNII-XII intact, no focal deficits, moves all extremities Results - Labs CBC & Chem 7: 06/02/21 07:34 06/02/21 07:34 Labs: Laboratory Last Values WBC 7.4 K/mm3 (4.5-11.0) 06/02/21 07:34 RBC 4.72 M/mm3 (3.65-5.03) 06/02/21 07:34 Hgb 13.1 gm/dl (11.8-15.2) 06/02/21 07:34 Hct 40.7 % (35.5-45.6) 06/02/21 07:34 MCV 86 fl (84-94) 06/02/21 07:34 MCH 28 pg (28-32) 06/02/21 07:34 MCHC 32 % (32-34) 06/02/21 07:34 RDW 16.5 % (13.2-15.2) H 06/02/21 07:34 Plt Count 326 K/mm3 (140-440) 06/02/21 07:34 Lymph % (Auto) 40.0 % (13.4-35.0) H 06/02/21 07:34 [place] % (Auto) 9.8 % (0.0-7.3) H 06/02/21 07:34 Eos % (Auto) 3.9 % (0.0-4.3) 06/02/21 07:34 Baso % (Auto) 1.2 % (0.0-1.8) 06/02/21 07:34 Lymph # (Auto) 2.9 K/mm3 (1.2-5.4) 06/02/21 07:34 [place] # (Auto) 0.7 K/mm3 (0.0-0.8) 06/02/21 07:34 Eos # (Auto) 0.3 K/mm3 (0.0-0.4) 06/02/21 07:34 Baso # (Auto) 0.1 K/mm3 (0.0-0.1) 06/02/21 07:34 Seg Neutrophils % 45.1 % (40.0-70.0) 06/02/21 07:34 Seg Neutrophils # 3.3 K/mm3 (1.8-7.7) 06/02/21 07:34 Sodium 136 mmol/L (137-145) L 06/02/21 07:34 Potassium 4.1 mmol/L (3.6-5.0) 06/02/21 07:34 Chloride 100.3 mmol/L (98-107) 06/02/21 07:34 Carbon Dioxide 25 mmol/L (22-30) 06/02/21 07:34 Anion Gap 15 mmol/L 06/02/21 07:34 BUN 15 mg/dL (9-20) 06/02/21 07:34 Creatinine 0.7 mg/dL (0.8-1.3) L 06/02/21 07:34 Estimated GFR > 60 ml/min 06/02/21 07:34 BUN/Creatinine Ratio 21 % 06/02/21 07:34 Glucose 205 mg/dL (75-100) H 06/02/21 07:34 POC Glucose 257 mg/dL (70-105) H 06/09/21 15:42 Hemoglobin A1c 6.6 % (4-6) H 06/02/21 07:34 Calcium 9.7 mg/dL (8.4-10.2) 06/02/21 07:34 Total Bilirubin 0.40 mg/dL (0.1-1.2) 06/02/21 07:34 AST 25 units/L (5-40) 06/02/21 07:34 ALT 27 units/L (7-56) 06/02/21 07:34 Alkaline Phosphatase 70 units/L (35-129) 06/02/21 07:34 Total Protein 7.2 g/dL (6.3-8.2) 06/02/21 07:34 Albumin 3.9 g/dL (3.9-5) 06/02/21 07:34 Albumin/Globulin Ratio 1.2 % 06/02/21 07:34 Triglycerides 60 mg/dL (2-149) 06/02/21 07:34 Cholesterol 130 mg/dL (50-199) 06/02/21 07:34 LDL Cholesterol Direct 85 mg/dL (50-130) 06/02/21 07:34 HDL Cholesterol 35 mg/dL (40-59) L 06/02/21 07:34 Cholesterol/HDL Ratio 3.71 % 06/02/21 07:34 TSH 1.620 mlU/mL (0.270-4.200) 06/02/21 07:34 Urine Color Yellow (Yellow) 06/03/21 14:11 Urine Turbidity Clear (Clear) 06/03/21 14:11 Urine pH 5.0 (5.0-7.0) 06/03/21 14:11 Ur Specific [place] 1.015 (1.003-1.030) 06/03/21 14:11 Urine Protein <15 mg/dl mg/dL (Negative) 06/03/21 14:11 Urine Glucose (UA) >=500 mg/dL (Negative) 06/03/21 14:11 Urine Ketones Neg mg/dL (Negative) 06/03/21 14:11 Urine Blood Neg (Negative) 06/03/21 14:11 Urine Nitrite Neg (Negative) 06/03/21 14:11 Urine Bilirubin Neg (Negative) 06/03/21 14:11 Urine Urobilinogen < 2.0 mg/dL (<2.0) 06/03/21 14:11 Ur Leukocyte Esterase Neg (Negative) 06/03/21 14:11 Urine WBC (Auto) < 1.0 /HPF (0.0-6.0) 06/03/21 14:11 Urine RBC (Auto) 1.0 /HPF (0.0-6.0) 06/03/21 14:11 U Epithel Cells (Auto) 1.0 /HPF (0-13.0) 06/03/21 14:11 Urine Mucus Few /HPF 06/03/21 14:11 Mares/IV: Voiding Method Toilet Active Medications - Current Medications Current Medications: Generic Name Dose Route Start Last Admin Trade Name Freq PRN Reason Stop Dose Admin Amlodipine Besylate 10 mg 06/03/21 10:00 06/09/21 10:10 Amlodipine 10 Mg Tab PO Not Given DAILY [facility] Aspirin 81 mg 06/02/21 10:00 06/09/21 10:10 Aspirin 81 Mg Tab Chew PO 81 mg QDAY [facility] Administration Atorvastatin Calcium 40 mg 06/02/21 22:00 06/08/21 21:20 Atorvastatin 40 Mg Tab PO 40 mg QHS [facility] Administration Citalopram Hydrobromide 10 mg 06/02/21 10:00 06/09/21 10:10 Citalopram 10 Mg Tab PO 10 mg QDAY [facility] Administration Dextrose 0 ml 06/02/21 11:45 Dextrose 10% *Hypoglycemia IV PRN PRN Hypoglycemia Insulin Human Isoph/Insulin Regular 30 unit 06/02/21 10:00 06/09/21 10:15 Insulin Nph/Regular 70/30 Inj SUB-Q Not Given QAM [facility] Insulin Human Isoph/Insulin Regular 5 unit 06/05/21 18:00 06/09/21 18:49 Insulin Nph/Regular 70/30 Inj SUB-Q Not Given QPM [facility] Insulin Human Lispro 0 unit 06/02/21 11:30 06/09/21 16:36 Insulin Lispro 100 Unit/Ml SUB-Q 4 unit ACHS [facility] Administration Protocol Insulin Human Regular 5 units 06/03/21 11:30 06/09/21 16:45 Insulin Regular, Human 100 Units/1 Ml SUB-Q Not Given ACHS [facility] Lisinopril 20 mg 06/03/21 08:55 06/09/21 10:10 Lisinopril 20 Mg Tab PO Not Given DAILY [facility] Melatonin 5 mg 06/02/21 01:27 Melatonin 5 Mg Tab PO QHS PRN Sleep Pantoprazole Sodium 20 mg 06/02/21 10:00 06/09/21 10:11 Pantoprazole 20 Mg Tab PO 20 mg QDAY [facility] Administration Trazodone HCl 50 mg 06/02/21 22:00 06/08/21 21:20 Trazodone 50 Mg Tab PO 50 mg QHS [facility] Administration Valproic Acid 125 mg 06/02/21 10:00 06/09/21 10:10 Valproic Acid 250 Mg/5 Ml Oral Liqd PO 125 mg DAILY [facility] Administration Nutrition/Malnutrition Assess - Dietary Evaluation Nutrition/Malnutrition Findings: Nutrition Notes Start: 06/08/21 10:22 Freq: Status: Active Protocol: Document 06/08/21 10:22 PAPILAR (Rec: 06/08/21 10:24 NHALL [id number]) Nutrition Notes Need for Assessment generated from: LOS Initial or Follow up Brief Note Current Diet Cardiac/Consistent CHO Height 5 ft 10 in Weight 81.2 kg [place] Body Weight (kg) 75.45 BMI 25.7 Weight Status Overweight Subjective/Other Information Pt screened for LOS. He has consumed 100% of meals since admission. Percent of energy/protein needs met: 96% energy 100% pro Burn Absent Trauma Absent Current % PO Good (75-100%) Minimum of two criteria No Is patient on ventilator? No Is Patient Ambulatory and/or Out of Bed Yes REE-([place]. or-ambulatory/OOB) [ 2050.72 [id number]] Calculation Used for Recommendations [place] or Additional Notes Pro needs 1-1.2g/k-97g/ day Fluid needs 1ml/kcal Nutrition Intervention Revisit per MD consult or patient Sign Off request:
[2021-06-09] MEDS: traZODone 50 MG TAB PO SCH (21:07)
[2021-06-10] MEDS: INSULIN LISPRO 100 UNIT/ML SUB-Q SCH ×4 (08:17→21:41)
[2021-06-10] MEDS: INSULIN REGULAR, HUMAN 100 UNITS/1 ML SUB-Q SCH ×5 (08:22→21:44)
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
[2021-06-10] MEDS: INSULIN NPH/REGULAR 70/30 INJ SUB-Q SCH ×2 (11:34→18:22)
[2021-06-10] MEDS: VALPROIC ACID 250 MG/5 ML ORAL LIQD PO SCH (11:35)
[2021-06-10] MEDS: amLODIPine 10 MG TAB PO SCH (11:35)
[2021-06-10] MEDS: LISINOPRIL 20 MG TAB PO SCH (11:36)
[2021-06-10] MEDS: ASPIRIN 81 MG TAB CHEW PO SCH (11:36)
[2021-06-10] MEDS: PANTOPRAZOLE 20 MG TAB PO SCH (11:36)
[2021-06-10] MEDS: CITALOPRAM 10 MG TAB PO SCH (11:36)
--- NOTE | 2021-06-10 15:08 | Progress Note ---
Assessment and Plan - Patient Problems (1) Vascular dementia with behavior disturbance Current Visit: Yes Status: Acute Plan to address problem: Verbal prompting, verbal redirection, benzodiazepine therapy as clinically indicated. (2) Cerebral atherosclerosis Current Visit: Yes Status: Acute Plan to address problem: Risk factor reduction therapy, antiplatelet therapy as clinically indicated. (3) HTN (hypertension) Current Visit: Yes Status: Acute Qualifiers: Hypertension type: primary hypertension Qualified Code(s): I10 - Essential (primary) hypertension Plan to address problem: Monitor blood pressure every shift, continue medical management (4) HLD (hyperlipidemia) Current Visit: Yes Status: Acute Qualifiers: Hyperlipidemia type: mixed hyperlipidemia Qualified Code(s): E78.2 - Mixed hyperlipidemia Plan to address problem: Low-cholesterol diet, supportive care, statin therapy as clinically indicated. (5) Diabetes Current Visit: Yes Status: Acute Plan to address problem: Consistent carbohydrate diet, Accu-Chek, insulin protocol, hypoglycemia protocol. (6) Nicotine dependence Current Visit: Yes Status: Acute Qualifiers: Nicotine product type: cigarettes Plan to address problem: Smoking cessation counseling, supportive care, continue medical management (7) JOHN (generalized anxiety disorder) Current Visit: Yes Status: Acute Plan to address problem: Benzodiazepine therapy as clinically indicated. (8) MDD (major depressive disorder) Current Visit: Yes Status: Acute Qualifiers: Major depression episode severity: unspecified Plan to address problem: Continue medical management, behavior change counseling, cognitive behavioral therapy. (9) Advance care planning Current Visit: Yes Status: Acute Plan to address problem: Disease education conducted, care plan discussed, diagnoses discussed, prognosis discussed, patient is full code. Patient acknowledges understanding and agree with care plan, +30 minutes. History Interval history: 70 YO Male with Vascular Dementia with Behavioral Disturbance, Cerebral Atherosclerosis, Nicotine Dependence, GERD, DM, HLD, HTN, JOHN, MDD admitted to [facility] for psychiatric stabilization. Consult placed by Dr. Bowden for medical management. Pt seen and evaluated in the recreation room. Patient justina ears to be at baseline level of cognition and function. Hospitalist Physical - Constitutional Vitals: Temp Pulse Resp BP Pulse Ox 98.8 F 73 16 135/70 96 06/09/21 19:41 06/10/21 11:36 06/09/21 19:41 06/10/21 11:36 06/09/21 19:41 General appearance: Present: no acute distress - EENT Eyes: Present: PERRL ENT: hearing decreased - Neck Neck: Present: supple - Respiratory Respiratory effort: normal Respiratory: bilateral: CTA - Cardiovascular Rhythm: regular Heart Sounds: Present: S1 & S2 - Extremities Extremities: no ischemia Peripheral Pulses: within normal limits - Abdominal General gastrointestinal: soft, non-tender, non-distended - Integumentary Integumentary: Present: clear, dry - Psychiatric Psychiatric: cooperative - Neurologic Neurologic: CNII-XII intact Results - Labs CBC & Chem 7: 06/02/21 07:34 06/02/21 07:34 Labs: Laboratory Last Values WBC 7.4 K/mm3 (4.5-11.0) 06/02/21 07:34 RBC 4.72 M/mm3 (3.65-5.03) 06/02/21 07:34 Hgb 13.1 gm/dl (11.8-15.2) 06/02/21 07:34 Hct 40.7 % (35.5-45.6) 06/02/21 07:34 MCV 86 fl (84-94) 06/02/21 07:34 MCH 28 pg (28-32) 06/02/21 07:34 MCHC 32 % (32-34) 06/02/21 07:34 RDW 16.5 % (13.2-15.2) H 06/02/21 07:34 Plt Count 326 K/mm3 (140-440) 06/02/21 07:34 Lymph % (Auto) 40.0 % (13.4-35.0) H 06/02/21 07:34 [place] % (Auto) 9.8 % (0.0-7.3) H 06/02/21 07:34 Eos % (Auto) 3.9 % (0.0-4.3) 06/02/21 07:34 Baso % (Auto) 1.2 % (0.0-1.8) 06/02/21 07:34 Lymph # (Auto) 2.9 K/mm3 (1.2-5.4) 06/02/21 07:34 [place] # (Auto) 0.7 K/mm3 (0.0-0.8) 06/02/21 07:34 Eos # (Auto) 0.3 K/mm3 (0.0-0.4) 06/02/21 07:34 Baso # (Auto) 0.1 K/mm3 (0.0-0.1) 06/02/21 07:34 Seg Neutrophils % 45.1 % (40.0-70.0) 06/02/21 07:34 Seg Neutrophils # 3.3 K/mm3 (1.8-7.7) 06/02/21 07:34 Sodium 136 mmol/L (137-145) L 06/02/21 07:34 Potassium 4.1 mmol/L (3.6-5.0) 06/02/21 07:34 Chloride 100.3 mmol/L (98-107) 06/02/21 07:34 Carbon Dioxide 25 mmol/L (22-30) 06/02/21 07:34 Anion Gap 15 mmol/L 06/02/21 07:34 BUN 15 mg/dL (9-20) 06/02/21 07:34 Creatinine 0.7 mg/dL (0.8-1.3) L 06/02/21 07:34 Estimated GFR > 60 ml/min 06/02/21 07:34 BUN/Creatinine Ratio 21 % 06/02/21 07:34 Glucose 205 mg/dL (75-100) H 06/02/21 07:34 POC Glucose 301 mg/dL (70-105) H 06/10/21 11:16 Hemoglobin A1c 6.6 % (4-6) H 06/02/21 07:34 Calcium 9.7 mg/dL (8.4-10.2) 06/02/21 07:34 Total Bilirubin 0.40 mg/dL (0.1-1.2) 06/02/21 07:34 AST 25 units/L (5-40) 06/02/21 07:34 ALT 27 units/L (7-56) 06/02/21 07:34 Alkaline Phosphatase 70 units/L (35-129) 06/02/21 07:34 Total Protein 7.2 g/dL (6.3-8.2) 06/02/21 07:34 Albumin 3.9 g/dL (3.9-5) 06/02/21 07:34 Albumin/Globulin Ratio 1.2 % 06/02/21 07:34 Triglycerides 60 mg/dL (2-149) 06/02/21 07:34 Cholesterol 130 mg/dL (50-199) 06/02/21 07:34 LDL Cholesterol Direct 85 mg/dL (50-130) 06/02/21 07:34 HDL Cholesterol 35 mg/dL (40-59) L 06/02/21 07:34 Cholesterol/HDL Ratio 3.71 % 06/02/21 07:34 TSH 1.620 mlU/mL (0.270-4.200) 06/02/21 07:34 Urine Color Yellow (Yellow) 06/03/21 14:11 Urine Turbidity Clear (Clear) 06/03/21 14:11 Urine pH 5.0 (5.0-7.0) 06/03/21 14:11 Ur Specific [place] 1.015 (1.003-1.030) 06/03/21 14:11 Urine Protein <15 mg/dl mg/dL (Negative) 06/03/21 14:11 Urine Glucose (UA) >=500 mg/dL (Negative) 06/03/21 14:11 Urine Ketones Neg mg/dL (Negative) 06/03/21 14:11 Urine Blood Neg (Negative) 06/03/21 14:11 Urine Nitrite Neg (Negative) 06/03/21 14:11 Urine Bilirubin Neg (Negative) 06/03/21 14:11 Urine Urobilinogen < 2.0 mg/dL (<2.0) 06/03/21 14:11 Ur Leukocyte Esterase Neg (Negative) 06/03/21 14:11 Urine WBC (Auto) < 1.0 /HPF (0.0-6.0) 06/03/21 14:11 Urine RBC (Auto) 1.0 /HPF (0.0-6.0) 06/03/21 14:11 U Epithel Cells (Auto) 1.0 /HPF (0-13.0) 06/03/21 14:11 Urine Mucus Few /HPF 06/03/21 14:11 Mares/IV: Voiding Method Toilet Active Medications - Current Medications Current Medications: Generic Name Dose Route Start Last Admin Trade Name Freq PRN Reason Stop Dose Admin Amlodipine Besylate 10 mg 06/03/21 10:00 06/10/21 11:35 Amlodipine 10 Mg Tab PO 10 mg DAILY [facility] Administration Aspirin 81 mg 06/02/21 10:00 06/10/21 11:36 Aspirin 81 Mg Tab Chew PO 81 mg QDAY [facility] Administration Atorvastatin Calcium 40 mg 06/02/21 22:00 06/09/21 21:07 Atorvastatin 40 Mg Tab PO 40 mg QHS [facility] Administration Citalopram Hydrobromide 10 mg 06/02/21 10:00 06/10/21 11:36 Citalopram 10 Mg Tab PO 10 mg QDAY [facility] Administration Dextrose 0 ml 06/02/21 11:45 Dextrose 10% *Hypoglycemia IV PRN PRN Hypoglycemia Insulin Human Isoph/Insulin Regular 30 unit 06/02/21 10:00 06/10/21 11:34 Insulin Nph/Regular 70/30 Inj SUB-Q 30 unit QAM [facility] Administration Insulin Human Isoph/Insulin Regular 5 unit 06/05/21 18:00 06/09/21 18:49 Insulin Nph/Regular 70/30 Inj SUB-Q Not Given QPM [facility] Insulin Human Lispro 0 unit 06/02/21 11:30 06/10/21 11:29 Insulin Lispro 100 Unit/Ml SUB-Q 6 unit [facility] Administration Protocol Insulin Human Regular 5 units 06/03/21 11:30 06/10/21 11:27 Insulin Regular, Human 100 Units/1 Ml SUB-Q 5 units [facility] Administration Lisinopril 20 mg 06/03/21 08:55 06/10/21 11:36 Lisinopril 20 Mg Tab PO 20 mg DAILY [facility] Administration Melatonin 5 mg 06/02/21 01:27 Melatonin 5 Mg Tab PO QHS PRN Sleep Pantoprazole Sodium 20 mg 06/02/21 10:00 06/10/21 11:36 Pantoprazole 20 Mg Tab PO 20 mg QDAY [facility] Administration Trazodone HCl 50 mg 06/02/21 22:00 06/09/21 21:07 Trazodone 50 Mg Tab PO 50 mg QHS [facility] Administration Valproic Acid 125 mg 06/02/21 10:00 06/10/21 11:35 Valproic Acid 250 Mg/5 Ml Oral Liqd PO 125 mg DAILY [facility] Administration Nutrition/Malnutrition Assess - Dietary Evaluation Nutrition/Malnutrition Findings: Nutrition Notes Start: 06/08/21 10:22 Freq: Status: Active Protocol: Document 06/08/21 10:22 KEYANA (Rec: 06/08/21 10:24 [facility] [id number]) Nutrition Notes Need for Assessment generated from: LOS Initial or Follow up Brief Note Current Diet Cardiac/Consistent CHO Height 5 ft 10 in Weight 81.2 kg [place] Body Weight (kg) 75.45 BMI 25.7 Weight Status Overweight Subjective/Other Information Pt screened for LOS. He has consumed 100% of meals since admission. Percent of energy/protein needs met: 96% energy 100% pro Burn Absent Trauma Absent Current % PO Good (75-100%) Minimum of two criteria No Is patient on ventilator? No Is Patient Ambulatory and/or Out of Bed Yes REE-([place]. or-ambulatory/OOB) [ 72 NUTR.[id number]] Calculation Used for Recommendations [place] or Additional Notes Pro needs 1-1.2g/k-97g/ day Fluid needs 1ml/kcal Nutrition Intervention Revisit per MD consult or patient Sign Off request:
[2021-06-10] MEDS: traZODone 50 MG TAB PO SCH (21:23)
[2021-06-11] MEDS: INSULIN REGULAR, HUMAN 100 UNITS/1 ML SUB-Q SCH ×4 (07:41→22:17)
[2021-06-11] MEDS: INSULIN LISPRO 100 UNIT/ML SUB-Q SCH ×4 (07:41→22:16)
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
[2021-06-11] MEDS: PANTOPRAZOLE 20 MG TAB PO SCH (09:06)
[2021-06-11] MEDS: amLODIPine 10 MG TAB PO SCH (09:06)
[2021-06-11] MEDS: ASPIRIN 81 MG TAB CHEW PO SCH (09:06)
[2021-06-11] MEDS: CITALOPRAM 10 MG TAB PO SCH (09:06)
[2021-06-11] MEDS: VALPROIC ACID 250 MG/5 ML ORAL LIQD PO SCH (09:06)
[2021-06-11] MEDS: LISINOPRIL 20 MG TAB PO SCH (09:07)
[2021-06-11] MEDS: INSULIN NPH/REGULAR 70/30 INJ SUB-Q SCH ×2 (10:10→18:20)
[2021-06-11] MEDS: traZODone 50 MG TAB PO SCH (22:15)
[2021-06-12] MEDS: INSULIN LISPRO 100 UNIT/ML SUB-Q SCH ×4 (07:51→21:21)
[2021-06-12] MEDS: INSULIN REGULAR, HUMAN 100 UNITS/1 ML SUB-Q SCH ×4 (07:51→21:21)
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
[2021-06-12] MEDS: amLODIPine 10 MG TAB PO SCH (09:20)
[2021-06-12] MEDS: ASPIRIN 81 MG TAB CHEW PO SCH (09:21)
[2021-06-12] MEDS: PANTOPRAZOLE 20 MG TAB PO SCH (09:22)
[2021-06-12] MEDS: LISINOPRIL 20 MG TAB PO SCH (09:22)
[2021-06-12] MEDS: CITALOPRAM 10 MG TAB PO SCH (09:22)
[2021-06-12] MEDS: VALPROIC ACID 250 MG/5 ML ORAL LIQD PO SCH (09:23)
[2021-06-12] MEDS: INSULIN NPH/REGULAR 70/30 INJ SUB-Q SCH ×2 (11:21→17:46)
--- NOTE | 2021-06-12 21:14 | Progress Note ---
Assessment and Plan - Patient Problems (1) Vascular dementia with behavior disturbance Current Visit: Yes Status: Acute Plan to address problem: Verbal prompting, verbal redirection, benzodiazepine therapy as clinically indicated. (2) Cerebral atherosclerosis Current Visit: Yes Status: Acute Plan to address problem: Risk factor reduction therapy, antiplatelet therapy as clinically indicated. (3) HTN (hypertension) Current Visit: Yes Status: Acute Qualifiers: Hypertension type: primary hypertension Qualified Code(s): I10 - Essential (primary) hypertension Plan to address problem: Monitor blood pressure every shift, continue medical management (4) HLD (hyperlipidemia) Current Visit: Yes Status: Acute Qualifiers: Hyperlipidemia type: mixed hyperlipidemia Qualified Code(s): E78.2 - Mixed hyperlipidemia Plan to address problem: Low-cholesterol diet, supportive care, statin therapy as clinically indicated. (5) Diabetes Current Visit: Yes Status: Acute Plan to address problem: Consistent carbohydrate diet, Accu-Chek, insulin protocol, hypoglycemia protocol. (6) Nicotine dependence Current Visit: Yes Status: Acute Qualifiers: Nicotine product type: cigarettes Plan to address problem: Smoking cessation counseling, supportive care, continue medical management (7) JOHN (generalized anxiety disorder) Current Visit: Yes Status: Acute Plan to address problem: Benzodiazepine therapy as clinically indicated. (8) MDD (major depressive disorder) Current Visit: Yes Status: Acute Qualifiers: Major depression episode severity: unspecified Plan to address problem: Continue medical management, behavior change counseling, cognitive behavioral therapy. (9) Advance care planning Current Visit: Yes Status: Acute Plan to address problem: Disease education conducted, care plan discussed, diagnoses discussed, prognosis discussed, patient is full code. Patient acknowledges understanding and agree with care plan, +30 minutes. History Interval history: 70 YO Male with Vascular Dementia with Behavioral Disturbance, Cerebral Atherosclerosis, Nicotine Dependence, GERD, DM, HLD, HTN, JOHN, MDD admitted to [facility] for psychiatric stabilization. Consult placed by Dr. Bowden for medical management. Pt seen and evaluated in the recreation room. Patient justina ears to be at baseline level of cognition and function. Hospitalist Physical - Constitutional Vitals: Temp Pulse Resp BP Pulse Ox 98.6 F 58 L 18 166/68 92 06/12/21 07:20 06/12/21 09:22 06/12/21 07:20 06/12/21 09:22 06/12/21 07:20 General appearance: Present: no acute distress - EENT Eyes: Present: PERRL ENT: hearing intact - Neck Neck: Present: supple - Respiratory Respiratory effort: normal Respiratory: bilateral: CTA - Cardiovascular Rhythm: regular Heart Sounds: Present: S1 & S2 - Extremities Extremities: no ischemia Peripheral Pulses: within normal limits - Abdominal General gastrointestinal: soft, non-tender, non-distended - Integumentary Integumentary: Present: clear, dry - Psychiatric Psychiatric: cooperative - Neurologic Neurologic: CNII-XII intact Results - Labs CBC & Chem 7: 06/02/21 07:34 06/02/21 07:34 Labs: Laboratory Last Values WBC 7.4 K/mm3 (4.5-11.0) 06/02/21 07:34 RBC 4.72 M/mm3 (3.65-5.03) 06/02/21 07:34 Hgb 13.1 gm/dl (11.8-15.2) 06/02/21 07:34 Hct 40.7 % (35.5-45.6) 06/02/21 07:34 MCV 86 fl (84-94) 06/02/21 07:34 MCH 28 pg (28-32) 06/02/21 07:34 MCHC 32 % (32-34) 06/02/21 07:34 RDW 16.5 % (13.2-15.2) H 06/02/21 07:34 Plt Count 326 K/mm3 (140-440) 06/02/21 07:34 Lymph % (Auto) 40.0 % (13.4-35.0) H 06/02/21 07:34 [place] % (Auto) 9.8 % (0.0-7.3) H 06/02/21 07:34 Eos % (Auto) 3.9 % (0.0-4.3) 06/02/21 07:34 Baso % (Auto) 1.2 % (0.0-1.8) 06/02/21 07:34 Lymph # (Auto) 2.9 K/mm3 (1.2-5.4) 06/02/21 07:34 [place] # (Auto) 0.7 K/mm3 (0.0-0.8) 06/02/21 07:34 Eos # (Auto) 0.3 K/mm3 (0.0-0.4) 06/02/21 07:34 Baso # (Auto) 0.1 K/mm3 (0.0-0.1) 06/02/21 07:34 Seg Neutrophils % 45.1 % (40.0-70.0) 06/02/21 07:34 Seg Neutrophils # 3.3 K/mm3 (1.8-7.7) 06/02/21 07:34 Sodium 136 mmol/L (137-145) L 06/02/21 07:34 Potassium 4.1 mmol/L (3.6-5.0) 06/02/21 07:34 Chloride 100.3 mmol/L (98-107) 06/02/21 07:34 Carbon Dioxide 25 mmol/L (22-30) 06/02/21 07:34 Anion Gap 15 mmol/L 06/02/21 07:34 BUN 15 mg/dL (9-20) 06/02/21 07:34 Creatinine 0.7 mg/dL (0.8-1.3) L 06/02/21 07:34 Estimated GFR > 60 ml/min 06/02/21 07:34 BUN/Creatinine Ratio 21 % 06/02/21 07:34 Glucose 205 mg/dL (75-100) H 06/02/21 07:34 POC Glucose 240 mg/dL (70-105) H 06/12/21 16:10 Hemoglobin A1c 6.6 % (4-6) H 06/02/21 07:34 Calcium 9.7 mg/dL (8.4-10.2) 06/02/21 07:34 Total Bilirubin 0.40 mg/dL (0.1-1.2) 06/02/21 07:34 AST 25 units/L (5-40) 06/02/21 07:34 ALT 27 units/L (7-56) 06/02/21 07:34 Alkaline Phosphatase 70 units/L (35-129) 06/02/21 07:34 Total Protein 7.2 g/dL (6.3-8.2) 06/02/21 07:34 Albumin 3.9 g/dL (3.9-5) 06/02/21 07:34 Albumin/Globulin Ratio 1.2 % 06/02/21 07:34 Triglycerides 60 mg/dL (2-149) 06/02/21 07:34 Cholesterol 130 mg/dL (50-199) 06/02/21 07:34 LDL Cholesterol Direct 85 mg/dL (50-130) 06/02/21 07:34 HDL Cholesterol 35 mg/dL (40-59) L 06/02/21 07:34 Cholesterol/HDL Ratio 3.71 % 06/02/21 07:34 TSH 1.620 mlU/mL (0.270-4.200) 06/02/21 07:34 Urine Color Yellow (Yellow) 06/03/21 14:11 Urine Turbidity Clear (Clear) 06/03/21 14:11 Urine pH 5.0 (5.0-7.0) 06/03/21 14:11 Ur Specific [place] 1.015 (1.003-1.030) 06/03/21 14:11 Urine Protein <15 mg/dl mg/dL (Negative) 06/03/21 14:11 Urine Glucose (UA) >=500 mg/dL (Negative) 06/03/21 14:11 Urine Ketones Neg mg/dL (Negative) 06/03/21 14:11 Urine Blood Neg (Negative) 06/03/21 14:11 Urine Nitrite Neg (Negative) 06/03/21 14:11 Urine Bilirubin Neg (Negative) 06/03/21 14:11 Urine Urobilinogen < 2.0 mg/dL (<2.0) 06/03/21 14:11 Ur Leukocyte Esterase Neg (Negative) 06/03/21 14:11 Urine WBC (Auto) < 1.0 /HPF (0.0-6.0) 06/03/21 14:11 Urine RBC (Auto) 1.0 /HPF (0.0-6.0) 06/03/21 14:11 U Epithel Cells (Auto) 1.0 /HPF (0-13.0) 06/03/21 14:11 Urine Mucus Few /HPF 06/03/21 14:11 Mares/IV: Voiding Method Toilet Active Medications - Current Medications Current Medications: Generic Name Dose Route Start Last Admin Trade Name Freq PRN Reason Stop Dose Admin Amlodipine Besylate 10 mg 06/03/21 10:00 06/12/21 09:20 Amlodipine 10 Mg Tab PO 10 mg DAILY [facility] Administration Aspirin 81 mg 06/02/21 10:00 06/12/21 09:21 Aspirin 81 Mg Tab Chew PO 81 mg QDAY [facility] Administration Atorvastatin Calcium 40 mg 06/02/21 22:00 06/11/21 22:15 Atorvastatin 40 Mg Tab PO 40 mg QHS [facility] Administration Citalopram Hydrobromide 10 mg 06/02/21 10:00 06/12/21 09:22 Citalopram 10 Mg Tab PO 10 mg QDAY [facility] Administration Dextrose 0 ml 06/02/21 11:45 Dextrose 10% *Hypoglycemia IV PRN PRN Hypoglycemia Insulin Human Isoph/Insulin Regular 30 unit 06/02/21 10:00 06/12/21 11:21 Insulin Nph/Regular 70/30 Inj SUB-Q 30 unit QAM [facility] Administration Insulin Human Isoph/Insulin Regular 5 unit 06/05/21 18:00 06/12/21 17:46 Insulin Nph/Regular 70/30 Inj SUB-Q 5 unit QPM [facility] Administration Insulin Human Lispro 0 unit 06/02/21 11:30 06/12/21 16:30 Insulin Lispro 100 Unit/Ml SUB-Q Not Given [facility] Protocol Insulin Human Regular 5 units 06/03/21 11:30 06/12/21 16:36 Insulin Regular, Human 100 Units/1 Ml SUB-Q 5 units ACHS [facility] Administration Lisinopril 20 mg 06/03/21 08:55 06/12/21 09:22 Lisinopril 20 Mg Tab PO 20 mg DAILY [facility] Administration Melatonin 5 mg 06/02/21 01:27 Melatonin 5 Mg Tab PO QHS PRN Sleep Pantoprazole Sodium 20 mg 06/02/21 10:00 06/12/21 09:22 Pantoprazole 20 Mg Tab PO 20 mg QDAY [facility] Administration Trazodone HCl 50 mg 06/02/21 22:00 06/11/21 22:15 Trazodone 50 Mg Tab PO 50 mg QHS [facility] Administration Valproic Acid 125 mg 06/02/21 10:00 06/12/21 09:23 Valproic Acid 250 Mg/5 Ml Oral Liqd PO 125 mg DAILY [facility] Administration Nutrition/Malnutrition Assess - Dietary Evaluation Nutrition/Malnutrition Findings: Nutrition Notes Start: 06/08/21 10:22 Freq: Status: Active Protocol: Document 06/08/21 10:22 [facility] (Rec: 06/08/21 10:24 [facility] [id number]) Nutrition Notes Need for Assessment generated from: LOS Initial or Follow up Brief Note Current Diet Cardiac/Consistent CHO Height 5 ft 10 in Weight 81.2 kg [place] Body Weight (kg) 75.45 BMI 25.7 Weight Status Overweight Subjective/Other Information Pt screened for LOS. He has consumed 100% of meals since admission. Percent of energy/protein needs met: 96% energy 100% pro Burn Absent Trauma Absent Current % PO Good (75-100%) Minimum of two criteria No Is patient on ventilator? No Is Patient Ambulatory and/or Out of Bed Yes REE-([place]-St. Jeor-ambulatory/OOB) [ 72 [id number]] Calculation Used for Recommendations [place]-St Jeor Additional Notes Pro needs 1-1.2g/k-97g/ day Fluid needs 1ml/kcal Nutrition Intervention Revisit per MD consult or patient Sign Off request:
--- NOTE | 2021-06-12 21:14 | Progress Note ---
Assessment and Plan - Patient Problems (1) Vascular dementia with behavior disturbance Current Visit: Yes Status: Acute Plan to address problem: Verbal prompting, verbal redirection, benzodiazepine therapy as clinically indicated. (2) Cerebral atherosclerosis Current Visit: Yes Status: Acute Plan to address problem: Risk factor reduction therapy, antiplatelet therapy as clinically indicated. (3) HTN (hypertension) Current Visit: Yes Status: Acute Qualifiers: Hypertension type: primary hypertension Qualified Code(s): I10 - Essential (primary) hypertension Plan to address problem: Monitor blood pressure every shift, continue medical management (4) HLD (hyperlipidemia) Current Visit: Yes Status: Acute Qualifiers: Hyperlipidemia type: mixed hyperlipidemia Qualified Code(s): E78.2 - Mixed hyperlipidemia Plan to address problem: Low-cholesterol diet, supportive care, statin therapy as clinically indicated. (5) Diabetes Current Visit: Yes Status: Acute Plan to address problem: Consistent carbohydrate diet, Accu-Chek, insulin protocol, hypoglycemia protocol. (6) Nicotine dependence Current Visit: Yes Status: Acute Qualifiers: Nicotine product type: cigarettes Plan to address problem: Smoking cessation counseling, supportive care, continue medical management (7) JOHN (generalized anxiety disorder) Current Visit: Yes Status: Acute Plan to address problem: Benzodiazepine therapy as clinically indicated. (8) MDD (major depressive disorder) Current Visit: Yes Status: Acute Qualifiers: Major depression episode severity: unspecified Plan to address problem: Continue medical management, behavior change counseling, cognitive behavioral therapy. (9) Advance care planning Current Visit: Yes Status: Acute Plan to address problem: Disease education conducted, care plan discussed, diagnoses discussed, prognosis discussed, patient is full code. Patient acknowledges understanding and agree with care plan, +30 minutes. History Interval history: 70 YO Male with Vascular Dementia with Behavioral Disturbance, Cerebral Atherosclerosis, Nicotine Dependence, GERD, DM, HLD, HTN, JOHN, MDD admitted to [facility] for psychiatric stabilization. Consult placed by Dr. Bowden for medical management. Pt seen and evaluated in the recreation room. Patient justina ears to be at baseline level of cognition and function. Hospitalist Physical - Constitutional Vitals: Temp Pulse Resp BP Pulse Ox 98.6 F 58 L 18 166/68 92 06/12/21 07:20 06/12/21 09:22 06/12/21 07:20 06/12/21 09:22 06/12/21 07:20 General appearance: Present: no acute distress - EENT Eyes: Present: PERRL ENT: hearing decreased - Neck Neck: Present: supple - Respiratory Respiratory effort: normal Respiratory: bilateral: CTA - Cardiovascular Rhythm: regular Heart Sounds: Present: S1 & S2 - Extremities Extremities: no ischemia Peripheral Pulses: within normal limits - Abdominal General gastrointestinal: soft, non-tender, non-distended - Integumentary Integumentary: Present: clear, dry - Psychiatric Psychiatric: cooperative - Neurologic Neurologic: CNII-XII intact Results - Labs CBC & Chem 7: 06/02/21 07:34 06/02/21 07:34 Labs: Laboratory Last Values WBC 7.4 K/mm3 (4.5-11.0) 06/02/21 07:34 RBC 4.72 M/mm3 (3.65-5.03) 06/02/21 07:34 Hgb 13.1 gm/dl (11.8-15.2) 06/02/21 07:34 Hct 40.7 % (35.5-45.6) 06/02/21 07:34 MCV 86 fl (84-94) 06/02/21 07:34 MCH 28 pg (28-32) 06/02/21 07:34 MCHC 32 % (32-34) 06/02/21 07:34 RDW 16.5 % (13.2-15.2) H 06/02/21 07:34 Plt Count 326 K/mm3 (140-440) 06/02/21 07:34 Lymph % (Auto) 40.0 % (13.4-35.0) H 06/02/21 07:34 [place] % (Auto) 9.8 % (0.0-7.3) H 06/02/21 07:34 Eos % (Auto) 3.9 % (0.0-4.3) 06/02/21 07:34 Baso % (Auto) 1.2 % (0.0-1.8) 06/02/21 07:34 Lymph # (Auto) 2.9 K/mm3 (1.2-5.4) 06/02/21 07:34 [place] # (Auto) 0.7 K/mm3 (0.0-0.8) 06/02/21 07:34 Eos # (Auto) 0.3 K/mm3 (0.0-0.4) 06/02/21 07:34 Baso # (Auto) 0.1 K/mm3 (0.0-0.1) 06/02/21 07:34 Seg Neutrophils % 45.1 % (40.0-70.0) 06/02/21 07:34 Seg Neutrophils # 3.3 K/mm3 (1.8-7.7) 06/02/21 07:34 Sodium 136 mmol/L (137-145) L 06/02/21 07:34 Potassium 4.1 mmol/L (3.6-5.0) 06/02/21 07:34 Chloride 100.3 mmol/L (98-107) 06/02/21 07:34 Carbon Dioxide 25 mmol/L (22-30) 06/02/21 07:34 Anion Gap 15 mmol/L 06/02/21 07:34 BUN 15 mg/dL (9-20) 06/02/21 07:34 Creatinine 0.7 mg/dL (0.8-1.3) L 06/02/21 07:34 Estimated GFR > 60 ml/min 06/02/21 07:34 BUN/Creatinine Ratio 21 % 06/02/21 07:34 Glucose 205 mg/dL (75-100) H 06/02/21 07:34 POC Glucose 240 mg/dL (70-105) H 06/12/21 16:10 Hemoglobin A1c 6.6 % (4-6) H 06/02/21 07:34 Calcium 9.7 mg/dL (8.4-10.2) 06/02/21 07:34 Total Bilirubin 0.40 mg/dL (0.1-1.2) 06/02/21 07:34 AST 25 units/L (5-40) 06/02/21 07:34 ALT 27 units/L (7-56) 06/02/21 07:34 Alkaline Phosphatase 70 units/L (35-129) 06/02/21 07:34 Total Protein 7.2 g/dL (6.3-8.2) 06/02/21 07:34 Albumin 3.9 g/dL (3.9-5) 06/02/21 07:34 Albumin/Globulin Ratio 1.2 % 06/02/21 07:34 Triglycerides 60 mg/dL (2-149) 06/02/21 07:34 Cholesterol 130 mg/dL (50-199) 06/02/21 07:34 LDL Cholesterol Direct 85 mg/dL (50-130) 06/02/21 07:34 HDL Cholesterol 35 mg/dL (40-59) L 06/02/21 07:34 Cholesterol/HDL Ratio 3.71 % 06/02/21 07:34 TSH 1.620 mlU/mL (0.270-4.200) 06/02/21 07:34 Urine Color Yellow (Yellow) 06/03/21 14:11 Urine Turbidity Clear (Clear) 06/03/21 14:11 Urine pH 5.0 (5.0-7.0) 06/03/21 14:11 Ur Specific [place] 1.015 (1.003-1.030) 06/03/21 14:11 Urine Protein <15 mg/dl mg/dL (Negative) 06/03/21 14:11 Urine Glucose (UA) >=500 mg/dL (Negative) 06/03/21 14:11 Urine Ketones Neg mg/dL (Negative) 06/03/21 14:11 Urine Blood Neg (Negative) 06/03/21 14:11 Urine Nitrite Neg (Negative) 06/03/21 14:11 Urine Bilirubin Neg (Negative) 06/03/21 14:11 Urine Urobilinogen < 2.0 mg/dL (<2.0) 06/03/21 14:11 Ur Leukocyte Esterase Neg (Negative) 06/03/21 14:11 Urine WBC (Auto) < 1.0 /HPF (0.0-6.0) 06/03/21 14:11 Urine RBC (Auto) 1.0 /HPF (0.0-6.0) 06/03/21 14:11 U Epithel Cells (Auto) 1.0 /HPF (0-13.0) 06/03/21 14:11 Urine Mucus Few /HPF 06/03/21 14:11 Mares/IV: Voiding Method Toilet Active Medications - Current Medications Current Medications: Generic Name Dose Route Start Last Admin Trade Name Freq PRN Reason Stop Dose Admin Amlodipine Besylate 10 mg 06/03/21 10:00 06/12/21 09:20 Amlodipine 10 Mg Tab PO 10 mg DAILY [facility] Administration Aspirin 81 mg 06/02/21 10:00 06/12/21 09:21 Aspirin 81 Mg Tab Chew PO 81 mg QDAY [facility] Administration Atorvastatin Calcium 40 mg 06/02/21 22:00 06/11/21 22:15 Atorvastatin 40 Mg Tab PO 40 mg QHS [facility] Administration Citalopram Hydrobromide 10 mg 06/02/21 10:00 06/12/21 09:22 Citalopram 10 Mg Tab PO 10 mg QDAY [facility] Administration Dextrose 0 ml 06/02/21 11:45 Dextrose 10% *Hypoglycemia IV PRN PRN Hypoglycemia Insulin Human Isoph/Insulin Regular 30 unit 06/02/21 10:00 06/12/21 11:21 Insulin Nph/Regular 70/30 Inj SUB-Q 30 unit QAM [facility] Administration Insulin Human Isoph/Insulin Regular 5 unit 06/05/21 18:00 06/12/21 17:46 Insulin Nph/Regular 70/30 Inj SUB-Q 5 unit QPM [facility] Administration Insulin Human Lispro 0 unit 06/02/21 11:30 06/12/21 16:30 Insulin Lispro 100 Unit/Ml SUB-Q Not Given [facility] Protocol Insulin Human Regular 5 units 06/03/21 11:30 06/12/21 16:36 Insulin Regular, Human 100 Units/1 Ml SUB-Q 5 units ACHS [facility] Administration Lisinopril 20 mg 06/03/21 08:55 06/12/21 09:22 Lisinopril 20 Mg Tab PO 20 mg DAILY [facility] Administration Melatonin 5 mg 06/02/21 01:27 Melatonin 5 Mg Tab PO QHS PRN Sleep Pantoprazole Sodium 20 mg 06/02/21 10:00 06/12/21 09:22 Pantoprazole 20 Mg Tab PO 20 mg QDAY [facility] Administration Trazodone HCl 50 mg 06/02/21 22:00 06/11/21 22:15 Trazodone 50 Mg Tab PO 50 mg QHS [facility] Administration Valproic Acid 125 mg 06/02/21 10:00 06/12/21 09:23 Valproic Acid 250 Mg/5 Ml Oral Liqd PO 125 mg DAILY [facility] Administration Nutrition/Malnutrition Assess - Dietary Evaluation Nutrition/Malnutrition Findings: Nutrition Notes Start: 06/08/21 10:22 Freq: Status: Active Protocol: Document 06/08/21 10:22 [facility] (Rec: 06/08/21 10:24 [id number]) Nutrition Notes Need for Assessment generated from: LOS Initial or Follow up Brief Note Current Diet Cardiac/Consistent CHO Height 5 ft 10 in Weight 81.2 kg [place] Body Weight (kg) 75.45 BMI 25.7 Weight Status Overweight Subjective/Other Information Pt screened for LOS. He has consumed 100% of meals since admission. Percent of energy/protein needs met: 96% energy 100% pro Burn Absent Trauma Absent Current % PO Good (75-100%) Minimum of two criteria No Is patient on ventilator? No Is Patient Ambulatory and/or Out of Bed Yes REE-(Kinney-St. Jeor-ambulatory/OOB) [ 72 NUTR.MSJOOB] Calculation Used for Recommendations Kinney-St Jeor Additional Notes Pro needs 1-1.2g/k-97g/ day Fluid needs 1ml/kcal Nutrition Intervention Revisit per MD consult or patient Sign Off request:
[2021-06-12] MEDS: traZODone 50 MG TAB PO SCH (21:20)
[2021-06-13] MEDS: INSULIN LISPRO 100 UNIT/ML SUB-Q SCH ×4 (08:18→21:48)
[2021-06-13] MEDS: VALPROIC ACID 250 MG/5 ML ORAL LIQD PO SCH ×2 (08:45→10:00)
[2021-06-13] MEDS: LISINOPRIL 20 MG TAB PO SCH ×2 (08:46→10:00)
[2021-06-13] MEDS: amLODIPine 10 MG TAB PO SCH ×2 (08:46→10:00)
[2021-06-13] MEDS: PANTOPRAZOLE 20 MG TAB PO SCH ×2 (08:47→10:00)
[2021-06-13] MEDS: CITALOPRAM 10 MG TAB PO SCH ×2 (08:47→10:00)
[2021-06-13] MEDS: ASPIRIN 81 MG TAB CHEW PO SCH ×2 (08:53→10:00)
[2021-06-13] MEDS: INSULIN NPH/REGULAR 70/30 INJ SUB-Q SCH ×2 (09:31→17:51)
[2021-06-13] MEDS: INSULIN REGULAR, HUMAN 100 UNITS/1 ML SUB-Q SCH ×4 (09:32→21:47)
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
[2021-06-13] MEDS: traZODone 50 MG TAB PO SCH (21:08)
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
[2021-06-14] MEDS: INSULIN LISPRO 100 UNIT/ML SUB-Q SCH ×2 (08:42→11:56)
[2021-06-14] MEDS: INSULIN REGULAR, HUMAN 100 UNITS/1 ML SUB-Q SCH ×2 (08:42→11:56)
[2021-06-14 09:59] VITALS: BP 144/67
[2021-06-14] MEDS: VALPROIC ACID 250 MG/5 ML ORAL LIQD PO SCH (09:59)
[2021-06-14] MEDS: CITALOPRAM 10 MG TAB PO SCH (10:00)
[2021-06-14] MEDS: ASPIRIN 81 MG TAB CHEW PO SCH (10:00)
[2021-06-14] MEDS: amLODIPine 10 MG TAB PO SCH (10:00)
[2021-06-14] MEDS: PANTOPRAZOLE 20 MG TAB PO SCH (10:00)
[2021-06-14] MEDS: LISINOPRIL 20 MG TAB PO SCH (10:00)
[2021-06-14] MEDS: INSULIN NPH/REGULAR 70/30 INJ SUB-Q SCH (10:09)
== END 2021-06-14 15:55 | disposition home or self-care (01) | DRG 884 ==
LOC: UNDOADMIN 13:17 → 3A 13:17 → 5A 06-02 03:46
PROVIDERS: ADMIT Psychiatry & Neurology Psychiatry; ATTEND Psychiatry & Neurology Psychiatry
DX: F01.51 Vascular dementia, unspecified severity, with behavioral disturbance (principal); F41.8 Other specified anxiety disorders; E11.65 Type 2 diabetes mellitus with hyperglycemia; K21.9 Gastro-esophageal reflux disease without esophagitis; Z20.822 Contact with and (suspected) exposure to COVID-19; I10 Essential (primary) hypertension; Z79.4 Long term (current) use of insulin; Z79.899 Other long term (current) drug therapy; Z79.82 Long term (current) use of aspirin; F17.210 Nicotine dependence, cigarettes, uncomplicated; I67.2 Cerebral atherosclerosis; E78.2 Mixed hyperlipidemia; F32.9 Major depressive disorder, single episode, unspecified
CPT/HCPCS: 36415; 80053; 80061; 81001; 82962; 83036; 84443; 85025; G0378; Q0177; Q9967; J1815